=== PATIENT | female | born 1990 | race Caucasian/White ===

== ENCOUNTER → 2017-09-03 13:30 | Outpatient (CLI) | payer OTHER, SELFPAY ==
--- NOTE | 2017-09-03 13:34 | US_ITS ---
US transvaginal HISTORY: Left-sided pelvic pain with vaginal spotting ITS.REASON: severe abdominal pain ORDERING PHYSICIAN: Drake Hanson MD PATIENT AGE: 27 years COMPARISON: 02/06/2012 FINDINGS: The uterus is 6.6 x 3.9 x 5.8 cm with a combined endometrial thickness of 9 mm. The uterus is retroverted. There are several small cystic areas present in the uterus measuring up to 1 x 0.5 cm along the anterior aspect of the lower uterine segment. The left ovary is 2.8 x 1.8 x 2 cm and contains a 1.7 cm cyst. The right ovary is 2.3 x 1 cm and contains a 0.7 cm cyst. No cul-de-sac fluid evident. There is a small amount of pelvic fluid. IMPRESSION: 1. Retroverted uterus with a few cystic areas within the myometrium of the uterus nonspecific 2. Small bilateral ovarian cysts
== END ==
PROVIDERS: Family Provider Family Medicine; PCP Family Medicine; Visit Provider Nurse Practitioner Obstetrics & Gynecology
DX: R10.9 Unspecified abdominal pain (principal)
CPT/HCPCS: 76830

== ENCOUNTER → 2017-10-16 11:48 | Outpatient (CLI) | payer OTHER, SELFPAY ==
[2017-10-16 12:07] LABS: Basophils # 0.1 K/mm3 (0-0.2); Basophils % 0.7 % (0.1-2.0); Eosinophils # 0.8 K/mm3 (0.0-0.4); Eosinophils % 5.9 % (0.1-12.0); Hematocrit 49.1 % (37.0-47.0); Hemoglobin 15.2 g/dL (12.2-16.2); Lymphocytes # 3.2 K/mm3 (0.7-4.5); Lymphocytes % 24.2 K/mm3 (10-50); Mean Corpuscular Hemoglobin 29.4 pg (27.0-31.2); Mean Corpuscular Volume 95.1 fl (81-99); Mean Platelet Volume 7.8 fl (7.4-10.4); Monocytes # 0.4 K/mm3 (0.1-1.0); Monocytes % 2.9 % (1.7-9.3); Neutrophils # 8.8 K/mm3 (1.8-7.8); Neutrophils % 66.3 % (37.0-80.0); Platelet Count 288 K/mm3 (142-424); Red Blood Count 5.16 M/mm3 (4.20-5.40); Red Cell Distribution Width 13.3 % (11.5-17.5); White Blood Count 13.3 K/mm3 (4.8-10.8)
[2017-10-16 13:13] LABS: HCG Qualitative, Serum Negative (Negative)
[2017-10-16 13:21] LABS: Alanine Aminotransferase 21 U/L (12-78); Albumin Level 4.1 gm/dL (3.4-5.0); Albumin/Globulin Ratio 1.3 (1.1-1.8); Alkaline Phosphatase 64 U/L (46-116); Anion Gap 9.7 mEq/L (5-15); Aspartate Amino Transferase 14 U/L (15-37); Bilirubin,Total 0.6 mg/dL (0.2-1.0); Blood Urea Nitrogen 10 mg/dL (7-18); Calcium 9.1 mg/dL (8.5-10.1); Carbon Dioxide 30 mmol/L (21.0-32.0); Chloride 104 mmol/L (98-107); Creatinine,Serum 0.66 mg/dL (0.55-1.02); Estimated Glomerular Filt Rate 108 ml/min (>60); Free Thyroxine Index 2.8 ug/dL (5.93-13.13); GFR (African American) 131 ML/MIN (>60); Globulin 3.2 gm/dl (1.3-3.2); Glucose 89 mg/dL (74-106); Potassium 4.7 mmoL/L (3.5-5.1); Sodium 139 mmol/L (136-145); T4 (Thyroxine) 8.3 ug/dl (4.7-13.3); Total Protein,Serum 7.3 gm/dL (6.4-8.2); Triiodothryronine (T3) Uptake 34 % (31-39)
== END ==
PROVIDERS: Family Provider Family Medicine; PCP Family Medicine; Visit Provider Nurse Practitioner Obstetrics & Gynecology
DX: N93.9 Abnormal uterine and vaginal bleeding, unspecified (principal)
CPT/HCPCS: 36415; 80053; 84436; 84443; 84479; 84703; 85025

== ENCOUNTER → 2019-12-31 16:41 | Outpatient (CLI) | payer OTHER, SELFPAY ==
[2020-01-02 09:02] LABS: Covid-19 Nasal PCR Sendout UK Not Detected
== END ==
PROVIDERS: PCP Internal Medicine Adolescent Medicine; Visit Provider Nurse Practitioner
DX: Z03.818 Encounter for observation for suspected exposure to other biological agents ruled out (principal)
CPT/HCPCS: U0003

== ENCOUNTER 2020-08-12 22:32 | Emergency (ER) | payer OTHER, SELFPAY ==
[2020-08-12 22:42] VITALS: BP 118/42; PULSE 69; RESP 16; TEMP 36.6; O2SAT 100; BMI 19.2
--- NOTE | 2020-08-12 22:50 | XR_ITS ---
PROCEDURE: XR FOOT LT MIN 3V CLINICAL INDICATION: 3rd, 4th and 5th toe pain without injury COMPARISON: CR FTL3 FOOT-LT-3 VIEWS from 08/02/2014 CR FTL3 FOOT-LT-3 VIEWS from 08/06/2014 FINDINGS: No fracture or dislocation. No lytic or blastic change. There is normal mineralization. The joint spaces are well-preserved. No significant degenerative/arthritic changes. No erosive changes evident. Other findings:None. IMPRESSION: No acute findings. Dictated by: Elie Rodriguez MD 08/13/2020 07:22 Elie Rodriguez MD in [place] 08/13/2020 07:22
--- NOTE | 2020-08-12 22:54 | HMH.EDLOEX ---
ED Disposition Clinical Impression: Cellulitis Qualifiers: Site of cellulitis: extremity Site of cellulitis of extremity: toe Laterality: left Qualified Code(s): L03.032 - Cellulitis of left toe Disposition: Home, Self-Care Condition on Discharge: Good Instructions: DI for Cellulitis -- Adult Additional Instructions: use meds and see pcp and podiatry for follow up Prescriptions: Minocycline HCl [Minocycline HCl 100mg Tab*] 100 mg PO BID #20 tab Transmission Status: Pending to [facility] Referrals: Venkata Baker MD [Primary Care Provider] - Patti Sharma DPM [Staff Physician] - - Critical Care Critical Care Time: No Attestation: On 08/12/20, the high probability of a clinically significant, sudden or life threatening deterioration of the following system(s) required my full and direct attention, intervention and personal management. The time I documented below is in addition to time spent performing reported procedures but includes the following listed in this critical care notation. Medical Decision Making - Medical Records Medical records reviewed: Yes: I reviewed the patient's medical records. - Oscar Inquiry Pt receiving controlled substance: No Vital Signs: 08/12/20 22:42 Temperature 97.9 F Temperature Source Oral Pulse Rate [Right] 69 Respiratory Rate 16 Blood Pressure [Right Arm] 118/42 L Blood Pressure Mean [Right Arm] 67 Blood Pressure Source [Right Arm] Automatic Cuff Blood Pressure Position [Right Arm] Supine 02 Sat by Pulse Oximetry 100 Oxygen Delivery Method Room Air - Lab Data Lab results reviewed: Yes: I reviewed the patient's lab results. Lab Results 08/12/20 22:50: WBC 19.3 H, RBC 4.51, Hgb 13.8, Hct 40.2, MCV 89.1, MCH 30.5, MCHC 34.3, RDW 13.3, Plt Count 248, MPV 7.8, Neut % (Auto) 68.6, Lymph % (Auto) 24.0, [place] % (Auto) 2.8, Eos % (Auto) 3.9, Baso % (Auto) 0.7, Neut # (Auto) 13.2 H, Lymph # (Auto) 4.6 H, [place] # (Auto) 0.5, Eos # (Auto) 0.8 H, Baso # (Auto) 0.1, Total Counted 100, Neutrophils % (Manual) 61, Lymphocytes % (Manual) 29, Monocytes % (Manual) 7, Eosinophils % (Manual) 3, Platelet Estimate Normal, RBC Morphology Normal 08/12/20 22:50: Sodium 136, Potassium 3.7, Chloride 106, Carbon Dioxide 25, Anion Gap 8.7, BUN 13, Creatinine 0.70, Estimated Creat Clear 89, Estimated GFR 99, Est GFR ( Amer) 120, Glucose 96, Uric Acid 4.5, Calcium 10.0, Total Bilirubin 0.4, AST 20, ALT 11 L, Alkaline Phosphatase 51, C-Reactive Protein 2.0, Total Protein 7.4, Albumin 4.6, Globulin 2.8, Albumin/Globulin Ratio 1.6 Result diagrams: 08/12/20 22:50 08/12/20 22:50 Orders (Tests/Meds): ED MEDICATIONS Generic Name Dose Route Start Last Admin Trade Name Freq PRN Reason Stop Dose Admin Sodium Chloride 1,000 mls @ 999 mls/hr 08/12/20 23:00 08/12/20 22:56 Sod Chlor 0.9% 1000ml Bag IV 08/13/20 00:00 999 mls/hr .Q1H1M ELMO Administration Ceftriaxone Sodium 1 gm/ 50 mls @ 100 mls/hr 08/12/20 23:30 Sodium Chloride IV 08/26/20 23:29 Q24H ELMO Protocol Discontinued Medications Generic Name Dose Route Start Last Admin Trade Name Freq PRN Reason Stop Dose Admin Ketorolac Tromethamine 30 mg 08/12/20 22:50 08/12/20 22:56 Ketorolac 30mg/Ml Vial IV 08/12/20 22:51 30 mg ONCE ONE Administration Methylprednisolone Sodium Succinate 125 mg 08/12/20 22:50 08/12/20 22:56 Methylprednisolone Sod Succ 125mg Vial IV 08/12/20 22:51 125 mg ONCE ONE Administration ORDERS Category Date Time Status XR foot LT min 3V Stat Exams 08/12/20 22:50 Taken C-Reactive Protein Stat Lab 08/12/20 22:50 Results Complete Blood Count Auto Diff Stat Lab 08/12/20 22:50 Results Comprehensive Metabolic Panel Stat Lab 08/12/20 22:50 Results Erythrocyte Sedimentation Rate Stat Lab 08/12/20 22:50 Results Procalcitonin Stat Lab 08/12/20 22:50 Results Uric Acid Stat Lab 08/12/20 22:50 Results - Radiology Data #1 Image(s): Foot/Toes
[2020-08-12 23:00] LABS: Basophils # 0.1 K/mm3 (0-0.2); Basophils % 0.7 % (0.1-2.0); Eosinophils # 0.8 K/mm3 (0.0-0.4); Eosinophils % 3.9 % (0.1-12.0); Hematocrit 40.2 % (37.0-47.0); Hemoglobin 13.8 g/dL (12.2-16.2); Lymphocytes # 4.6 K/mm3 (0.7-4.5); Mean Corpuscular HGB Conc 34.3 g/dL (31.8-35.4); Mean Corpuscular Hemoglobin 30.5 pg (27.0-31.2); Mean Corpuscular Volume 89.1 fl (81-99); Mean Platelet Volume 7.8 fl (7.4-10.4); Monocytes # 0.5 K/mm3 (0.1-1.0); Monocytes % 2.8 % (1.7-9.3); Neutrophils # 13.2 K/mm3 (1.8-7.8); Neutrophils % 68.6 % (37.0-80.0); Platelet Count 248 K/mm3 (142-424); Red Blood Count 4.51 M/mm3 (4.20-5.40); Red Cell Distribution Width 13.3 % (11.5-17.5); White Blood Count 19.3 K/mm3 (4.8-10.8)
[2020-08-12 23:02] LABS: MANUAL DIFFERENTIAL MANUAL DIFFERENTIAL (MANUAL DIFF)
[2020-08-12 23:08] LABS: Alanine Aminotransferase 11 U/L (12-78); Albumin Level 4.6 g/dl (3.5-5.0); Albumin/Globulin Ratio 1.6 (1.1-1.8); Alkaline Phosphatase 51 U/L (38-126); Anion Gap 8.7 mEq/L (5-15); Aspartate Amino Transferase 20 U/L (14-36); Bilirubin,Total 0.4 mg/dl (0.2-1.3); Blood Urea Nitrogen 13 mg/dl (7-17); Carbon Dioxide 25 mmol/L (22.0-30.0); Chloride 106 mmol/L (98-107); Creatinine Clearance Estimated 89 mL/min (50-200); Estimated Glomerular Filt Rate 99 ml/min (>60); GFR (African American) 120 ML/MIN (>60); Globulin 2.8 g/dL (1.3-3.2); Glucose 96 mg/dl (74-100); Potassium 3.7 mmoL/L (3.5-5.1); Sodium 136 mmol/L (136-145); Total Protein,Serum 7.4 g/dl (6.3-8.2); Uric Acid 4.5 mg/dl (2.5-6.2)
[2020-08-12 23:19] LABS: Eosinophils % 3 % (0-3); Lymphocytes % 29 % (10-50); Monocytes % 7 % (2-9); Neutrophils % 61 % (42-76); Platelet Estimate Normal; RBC Morphology Normal; Total Cells Counted 100
[2020-08-12 23:26] LABS: Erythrocyte Sedimentation Rate 14 mm/hr (0-20)
[2020-08-12 23:27] LABS: Procalcitonin 0.031 ng/mL (0.0-2.0)
[2020-08-13 00:03] VITALS: BP 114/67; PULSE 66; RESP 16; TEMP 36.6; O2SAT 100
== END 2020-08-13 00:07 | disposition home or self-care (01) ==
PROVIDERS: Emergency Provider Emergency Medicine; PCP Internal Medicine Adolescent Medicine
DX: L03.032 Cellulitis of left toe (principal); F17.210 Nicotine dependence, cigarettes, uncomplicated
CPT/HCPCS: 73630; 80053; 84145; 84550; 85007; 85025; 85651; 86140; 96365; 96367; 96375; 99282

== ENCOUNTER → 2020-08-15 17:07 | Outpatient (CLI) | payer OTHER, SELFPAY | PROVIDERS: Visit Provider Podiatrist | DX: L03.90 Cellulitis, unspecified (principal); L03.032 Cellulitis of left toe | CPT/HCPCS: 87070; 87077; 87186; 87205 ==

== ENCOUNTER → 2020-08-21 14:52 | Outpatient (CLI) | payer OTHER, SELFPAY ==
[2020-08-21 14:55] LABS: Microscopic, Urine URINE MICROSCOPIC (MICROSCOPIC)
[2020-08-21 15:13] LABS: Basophils # 0.1 K/mm3 (0-0.2); Basophils % 0.9 % (0.1-2.0); Eosinophils # 0.6 K/mm3 (0.0-0.4); Eosinophils % 4.7 % (0.1-12.0); Hematocrit 45.6 % (37.0-47.0); Hemoglobin 15.1 g/dL (12.2-16.2); Lymphocytes # 3.6 K/mm3 (0.7-4.5); Lymphocytes % 29.4 % (10-50); Mean Corpuscular Hemoglobin 30.7 pg (27.0-31.2); Mean Corpuscular Volume 92.9 fl (81-99); Mean Platelet Volume 7.5 fl (7.4-10.4); Monocytes # 0.4 K/mm3 (0.1-1.0); Monocytes % 2.9 % (1.7-9.3); Neutrophils # 7.6 K/mm3 (1.8-7.8); Neutrophils % 62.1 % (37.0-80.0); Platelet Count 297 K/mm3 (142-424); Red Blood Count 4.91 M/mm3 (4.20-5.40); Red Cell Distribution Width 13.1 % (11.5-17.5); White Blood Count 12.2 K/mm3 (4.8-10.8)
[2020-08-21 15:24] LABS: Appearance,Urine CLEAR (Clear); Bilirubin,Urine Negative (Negative); Blood, Urine Negative (Negative); Color,Urine YELLOW (Yellow); Glucose,Urine (UA) Negative (Negative); Ketones,Urine Negative (Negative); Leukocyte Esterase,Urine Negative (Negative); Nitrate,Urine Negative (Negative); PH,Urine 5.5 (5.0-8.5); Protein,Urine Negative (Negative); Specific Gravity, Urine 1.025 (1.005-1.030); Urobilinogen,Urine 0.2 EU/dl (0.2)
[2020-08-21 15:34] LABS: Chloride 103 mmol/L (98-107)
[2020-08-21 15:35] LABS: Potassium 4.6 mmoL/L (3.5-5.1); Sodium 138 mmol/L (136-145)
[2020-08-21 15:37] LABS: Alanine Aminotransferase 11 U/L (12-78); Amylase 97 U/L (30-110); Anion Gap 12.6 mEq/L (5-15); Aspartate Amino Transferase 21 U/L (14-36); Blood Urea Nitrogen 11 mg/dl (7-17); Carbon Dioxide 27 mmol/L (22.0-30.0); Estimated Glomerular Filt Rate 99 ml/min (>60); GFR (African American) 120 ML/MIN (>60)
[2020-08-21 15:38] LABS: Albumin Level 5.1 g/dl (3.5-5.0); Albumin/Globulin Ratio 1.8 (1.1-1.8); Alkaline Phosphatase 62 U/L (38-126); Bilirubin,Total 1.2 mg/dl (0.2-1.3); Calcium 9.9 mg/dl (8.4-10.2); Globulin 2.8 g/dL (1.3-3.2); Glucose 105 mg/dl (74-100); Lipase 139 U/L (23-300); Total Protein,Serum 7.9 g/dl (6.3-8.2)
[2020-08-21 16:01] LABS: Bacteria,Urine 1+ /lpf; Squamous Epithelial Cell,Urine TNTC #/hpf (0-5)
[2020-08-21 16:31] LABS: HCG Qualitative, Serum Negative (Negative)
== END ==
PROVIDERS: Visit Provider Internal Medicine Adolescent Medicine
DX: R10.31 Right lower quadrant pain (principal); R10.32 Left lower quadrant pain; D72.829 Elevated white blood cell count, unspecified
CPT/HCPCS: 36415; 80053; 81001; 82150; 83690; 84703; 85025

== ENCOUNTER → 2020-08-22 12:27 | Outpatient (CLI) | payer OTHER, SELFPAY ==
--- NOTE | 2020-08-22 15:10 | CT_ITS ---
PROCEDURE: CT ABDOMEN PELVIS W CON CLINICAL INDICATION: RLQ PAIN,LLQ PAIN,LEUKOCYTOSIS COMPARISON: CT ABDPELW/O CT ABD PELVIS W/O CONTRAST from 10/28/2012 US TRANVAG US transvaginal from 09/03/2017 TECHNIQUE: IV Contrast: 75ML Isovue 370 Oral Contrast None Axial images obtained with sagittal and coronal reformats. All CT scans at the facility use one or more dose reduction, viz: automated exposure control, ma/kV adjustment per patient size (including targeted exams where dose is matched to indication, i.e. head), or iterative reconstruction technique. FINDINGS: LOWER THORAX: No acute finding ABDOMEN & PELVIS: A 7 mm hypodensity is present in the hepatic dome nonspecific may represent a hepatic cyst. The liver has an otherwise unremarkable appearance. The gallbladder, spleen, adrenal glands, pancreas, and kidneys have an unremarkable appearance. No renal or ureteral calculi. No evidence of appendicitis. No intestinal obstruction or free air. The uterus is bulky with heterogeneous density and canted toward the right. Heterogeneous density noted toward the fundus of the uterus. Consider pelvic ultrasound for more thorough evaluation. Uterine fibroids are considered. Follow-up is suggested. There is a prominent left periuterine vein. No acute bony findings. Mild lumbar scoliosis convex right. Probable small bone island of the right femoral head IMPRESSION: 1. No acute abdominal or pelvic findings. No evidence of appendicitis. 2. Bulky heterogeneous uterus which may be due to the fibroid involvement. Nonemergent pelvic ultrasound suggested Dictated by: Elie Rodriguez MD 08/22/2020 16:26 Eile Rodriguez MD in [place] 08/22/2020 16:26
== END ==
PROVIDERS: PCP Internal Medicine Adolescent Medicine; Visit Provider Internal Medicine Adolescent Medicine
DX: R10.31 Right lower quadrant pain (principal); R10.32 Left lower quadrant pain; D72.829 Elevated white blood cell count, unspecified
CPT/HCPCS: 74177; Q9967

== ENCOUNTER → 2020-08-29 14:12 | Outpatient (CLI) | payer OTHER, SELFPAY ==
--- NOTE | 2020-08-29 14:17 | US_ITS ---
PROCEDURE: US TRANSVAGINAL CLINICAL INDICATION: ENLARGED UTERUS COMPARISON: US TRANVAG US transvaginal from 09/03/[address] ABDOMEN PELVIS W CON from 08/22/2020 FINDINGS: UTERUS: 8cm x 5cmx 4cm. Small amount fluid is present in the endometrial canal inferiorly. In the fundus of the uterus there are several hypoechoic areas measuring up to 2 cm. These are central as well as on the right and left. These do correspond to the abnormality noted on the CT scan. At least 1 of the cystic areas contains and a rounded area of I so echogenicity. Another was cystic areas has an irregular margin. There is some distortion with some possible scarring in the mid aspect of these cystic areas. LEFT OVARY: [id number] with a volume of 2.2ml. RIGHT OVARY: [id number] with a volume of 9ml. Septated right ovarian cyst measuring 3 x 2 cm. No cul-de-sac fluid. IMPRESSION: Abnormal appearance of the uterus which has developed since 09/03/2017 with several, approximately 4 complex cystic areas as described above with possible scarring in the center of these regions with some irregular increased echogenicity. This may represent post ablation changes with hematometra and scarring. Infection is an additional consideration. Neoplasm would also be included in the differential diagnosis.. Gynecological consult may be in order. MRI of the pelvis without and with contrast enhancement may provide further evaluation. 3 x 2 cm septated right ovarian cyst Dictated by: Elie Rodriguez MD 08/30/2020 10:44 Elie Rodriguez MD in [place] 08/30/2020 10:44
== END ==
PROVIDERS: PCP Internal Medicine Adolescent Medicine; Visit Provider Internal Medicine Adolescent Medicine
DX: N85.2 Hypertrophy of uterus (principal)
CPT/HCPCS: 76830

== ENCOUNTER → 2020-09-15 12:06 | Outpatient (CLI) | payer OTHER, SELFPAY ==
[2020-09-15 12:53] LABS: Basophils # 0.1 K/mm3 (0-0.2); Basophils % 0.7 % (0.1-2.0); Eosinophils # 0.6 K/mm3 (0.0-0.4); Eosinophils % 4.6 % (0.1-12.0); Hematocrit 43.5 % (37.0-47.0); Hemoglobin 14.5 g/dL (12.2-16.2); Lymphocytes # 2.7 K/mm3 (0.7-4.5); Lymphocytes % 22.6 % (10-50); Mean Corpuscular HGB Conc 33.4 g/dL (31.8-35.4); Mean Corpuscular Hemoglobin 30.5 pg (27.0-31.2); Mean Corpuscular Volume 91.1 fl (81-99); Mean Platelet Volume 7.7 fl (7.4-10.4); Monocytes # 0.5 K/mm3 (0.1-1.0); Monocytes % 3.8 % (1.7-9.3); Neutrophils # 8.2 K/mm3 (1.8-7.8); Neutrophils % 68.3 % (37.0-80.0); Platelet Count 266 K/mm3 (142-424); Red Blood Count 4.78 M/mm3 (4.20-5.40); White Blood Count 11.9 K/mm3 (4.8-10.8)
[2020-09-15 13:15] LABS: Chloride 104 mmol/L (98-107); Sodium 141 mmol/L (136-145)
[2020-09-15 13:16] LABS: Potassium 4.5 mmoL/L (3.5-5.1)
[2020-09-15 13:18] LABS: HCG Qualitative, Serum Negative (Negative)
[2020-09-15 13:19] LABS: Anion Gap 13.5 mEq/L (5-15); Blood Urea Nitrogen 7 mg/dl (7-17); Calcium 9.8 mg/dl (8.4-10.2); Carbon Dioxide 28 mmol/L (22.0-30.0); Estimated Glomerular Filt Rate 99 ml/min (>60); GFR (African American) 120 ML/MIN (>60); Glucose 75 mg/dl (74-100)
== END ==
PROVIDERS: Visit Provider Nurse Practitioner Obstetrics & Gynecology
DX: Z01.812 Encounter for preprocedural laboratory examination (principal); Z11.52 Encounter for screening for COVID-19; R10.2 Pelvic and perineal pain; N85.7 Hematometra
CPT/HCPCS: 36415; 80048; 84703; 85025; U0003

== ENCOUNTER 2020-09-18 06:12 | Observation (INO) | payer OTHER, SELFPAY ==
[2020-09-14 10:55] VITALS: BMI 18.1
[2020-09-18] VITALS (26 sets, daily range): BP systolic 89–149; BP diastolic 56–73; PULSE 54–91; RESP 13–20; TEMP 36.2–38; O2SAT 96–100
--- NOTE | 2020-09-18 06:51 | HMH.ANESCL ---
[facility] Anesthesia Checklist - Structural Data Admitted From: Home Planned Operative Procedure/s: [facility] Consent for Planned Operative Procedure(s) Verified: Yes - Additional verifications Anesthesia Reactions: No Hx Blood Transfusions: Yes Blood Transfusion Reaction: No - Airway Assessment C-Spine Mobility Assessed: Yes TMJ Mobility Assessed: Yes Dentition: Poor Dentition - Neurological Assessment Level of Consciousness: Awake, Alert, Appropriate - Anesthesia Plan Anesthesia Risk discussed: Yes Anesthesia Plan: Verified ASA Class: II Anesthesia Type: General [facility] History I have reviewed the patient's past medical history: Yes Medical History: Denies:: Anxiety, Cancer, Depression, Diabetes Mellitus Type 1, Diabetes Mellitus Type 2, Internal Pacemaker, Migraine, MRSA, Seizures *Have you ever received a pneumonia vaccine?: No *Have you received a flu vaccine this season?: No Other Medical History: Denies: Blood Transfusion Reaction Anesthesia experience/problems:: none Laterality Cases: Left: Other Other Surgeries: No: Pacemaker Amputation: No Fractures: No - *Social History Last grade of school completed: High school graduate Smoking Status: Current every day smoker Tobacco Type: cigarettes # Packs/Day (cigarettes): 1 Alcohol Intake: never Substance Use Type: denies use *Occupational Status:: employed Housing: apartment Household Members: spouse *Travel in the last 8 weeks: None - Psychiatric History Pschychiatric History:: Denies:: Anxiety, Depression Family Hx:: Coronary Artery Disease, Heart Attack, Hyperlipidemia, Hypertension
--- NOTE | 2020-09-18 09:33 | HMH.OPNOTE ---
Date of procedure: 09/18/20 Pre-op Diagnosis:: Pelvic pain, hematometra Post-op Diagnosis:: Pelvic pain, hematometra Procedure performed:: Laparoscopically assisted vaginal hysterectomy Surgeon:: Drake Hanson MD [employer] Tender(s):: Dr. Broderick BUS DRIVER:: Other (Jeromy Perkins) Anesthesia: GETA Estimated blood loss (mL): 150 Clinical Note:: She is a 30-year-old 3 para 3 lady who complains of severe lower abdominal pain. An ultrasound showed that she had cystic lesions within the uterus. She has had a previous endometrial ablation I suspect she still had some areas of endometrium. As result of this she was offered laparoscopically assisted vaginal hysterectomy. Operative findings:: She has had a previous tubal ligation. The tubes were absent. The ovaries appeared normal. The uterus was somewhat bulky and normal in appearance. The deep pelvis was normal. The appendix was visualized and was seen to be adherent to the peritoneum overlying the right iliac artery. The upper abdomen appeared normal. Operative note:: She was taken to the operating room where general anesthesia was found be adequate. She was prepped and draped in normal sterile fashion in the semilithotomy position. A weighted speculum was placed in the vagina and the anterior lip of the cervix was grasped with a tenaculum. An acorn uterine manipulator was then placed within the cervical os. I then changed gloves. I injected 10 cc of 0.5% ropivacaine around the umbilicus and made a small incision within the umbilicus. I inserted a Veress needle into the abdominal cavity. The abdominal cavity was then insufflated with carbon dioxide gas to a pressure of 20 mmHg. I then inserted an 11 mm trocar under direct vision. I injected through and through the pubic hairline, made a small incision here and inserted a 5 mm trocar under direct vision. I identified the inferior epigastric arteries on the left side, went lateral to these and injected through and through. I then made a small incision and inserted an 11 mm trocar under direct vision. A similar 11 mm trocar was placed on the right side. The left round ligament was then grasped and cut through with harmonic scalpel. This was followed by opening up the peritoneum anteriorly to the midline. I then grasped the tube on the left side and cut through this. This is followed by cutting through the left utero-ovarian ligament. I used Harmonic scalpel on the coagulation mode. I then took down the posterior aspect of the broad ligament to the level of the uterosacral ligament. I then skeletonized the uterine arteries on the left side and placed hemoclips on these. Using the harmonic scalpel on coagulation mode adjacent to the cervix I then took down these uterine arteries. I then further freed up the bladder anteriorly and laterally on the left side. I then turned my attention to the right side where I grasped the right round ligament. The right tube was adherent to the right pelvic sidewall and using harmonic scalpel I was able to free this up. I then cut through the right round ligament. I then took down the anterior peritoneum to the midline joining up with the other side. I further dissected the bladder off. The posterior aspect of the right broad ligament was then taken down with harmonic scalpel. I skeletonized the uterine arteries on the right side. I applied hemoclips to the uterine arteries and staying adjacent to the cervix on the right side I took down the uterine arteries with harmonic scalpel on coagulation mode. I further freed up the bladder. We then assured hemostasis. We then turned our attention to the vaginal portion of the procedure. The patient was placed in the lithotomy position and a weighted speculum was placed in the vagina. The anterior and posterior lip of the cervix were grasped with Ankit huiacbrad. I then injected 20 cc of 1% Xylocaine with epinephrine circumferentially about the cervix.
--- NOTE | 2020-09-18 09:41 | HMH.HP ---
*Admission Date: 09/18/20 *Chief complaint: Hematomata, pelvic pain *History of present illness: She is a 30-year-old 3 para 3 lady who is had a previous endometrial ablation. She began having some abdominal pain recently and was found to have a number of cystic areas within the uterine cavity. I suspect that she continued to have some endometrial tissue and this continued to bleed internally within the uterine cavity. The distention of the uterine cavity was causing pain and as result of that we offered her laparoscopic-assisted vaginal hysterectomy. She is had a previous bilateral salpingectomy. [facility] History I have reviewed the patient's past medical history: Yes Medical History: Denies:: Anxiety, Cancer, Depression, Diabetes Mellitus Type 1, Diabetes Mellitus Type 2, Internal Pacemaker, Migraine, MRSA, Seizures *Have you ever received a pneumonia vaccine?: No *Have you received a flu vaccine this season?: No Other Medical History: Denies: Blood Transfusion Reaction Anesthesia experience/problems:: none Laterality Cases: Left: Other Other Surgeries: No: Pacemaker Amputation: No Fractures: No - *Social History Last grade of school completed: High school graduate Smoking Status: Current every day smoker Tobacco Type: cigarettes # Packs/Day (cigarettes): 1 Alcohol Intake: never Substance Use Type: denies use *Occupational Status:: employed Housing: apartment Household Members: spouse *Travel in the last 8 weeks: None - Psychiatric History Pschychiatric History:: Denies:: Anxiety, Depression Family Hx:: Coronary Artery Disease, Heart Attack, Hyperlipidemia, Hypertension Review of Systems - Review of Systems Review of systems:: pertinent systems reviewed and negative unless documented below Meds Home Medications Medication Instructions Recorded Confirmed Type No Known Home Medications 09/11/20 09/14/20 History Allergies Allergy/AdvReac Type Severity Reaction Status Date / Time No Known Allergies Allergy Verified 09/11/20 09:44 Exam Vital signs and Labs for Last 24 Hours: Temp Pulse Resp BP Pulse Ox 97.2 F L 57 L 18 140/68 100 09/18/20 06:23 09/18/20 06:23 09/18/20 06:23 09/18/20 06:23 09/18/20 06:23 - Constitutional no acute distress - *Routine HEENT Exam Head: Present: normocephalic Eye: Present: EOMI, PERRL ENT: Present: mucous membranes moist - *Routine Neck Exam Present: supple, full ROM - *Routine Respiratory Exam Absent: accessory muscle use (good air entry bilaterally), wheezes, crackles - *Routine Cardiovascular Exam Present: RRR. Absent: murmur - *Routine Abdominal Exam Present: soft, normoactive bowel sounds. Absent: tenderness, rebound, guarding, mass - *Routine Rectal Exam Rectal:: deferred - *Routine Genitalia Exam Genitalia:: deferred - *Routine Extremities Exam Present: full ROM. Absent: cyanosis, edema, calf tenderness - *Routine Skin Exam Present: intact (good color) - *Routine Neurological Exam Present: alert, oriented X3 - Routine Psychiatric Exam Present: normal affect - Detailed Rectal Exam Patient deferred: visual exam, digital exam - Detailed Exam Patient deferred: external exam, groin exam, perineal exam Assessment and Plan (1) Hematometra Status: Acute Category: Medical Code(s): N85.7 - Hematometra (2) Pelvic pain Status: Acute Category: Medical Code(s): R10.2 - Pelvic and perineal pain (3) Dysmenorrhea Status: Chronic Category: Medical Code(s): N94.6 - Dysmenorrhea, unspecified (4) Dyspareunia Status: Chronic Category: Medical - Assessment and plan all Dx Assessment and Plan for all problems:: She is admitted for laparoscopic-assisted vaginal hysterectomy.
--- NOTE | 2020-09-18 10:35 | PC.NURSE ---
1000-pt eating ice chips w/out difficulty 1010-detailed report called to [facility] 1013-pt transported to OB room 279 via hospital bed w/tommy rails up per ALISA Hatch and ALISA Guerrier and left in care of ALISA Vargas with bed locked in lowest position, vss, pt stable.
--- NOTE | 2020-09-18 10:55 | HMH.PHAVTE ---
[facility] Pharmacy VTE Monitoring - Patient Demographics Admission date: 09/18/20 Report Date: 09/18/20 Time: 10:55 Allergies/Adverse Reactions: Patient Allergies No Known Allergies Allergy (Verified 09/11/20 09:44) Height: 1.57 m Weight: 44.962 kg Patient Problems: Current Active Problems Hematometra (Acute) Pelvic pain (Acute) Dyspareunia (Chronic) Dysmenorrhea (Chronic) - Prophylaxis VTE Prophylaxis Ordered?: Yes Types of VTE Prophylaxis: IPCS Thigh High Location of Applied Device: Bilateral Lower Extremeties
--- NOTE | 2020-09-18 11:17 | PC.NURSE ---
Dr. Hanson at bs to see pt (rounding).
--- NOTE | 2020-09-18 15:03 | PC.NURSE ---
Pt given Incentive Spirometer, instructed on usage of and reasons why. Verbalized understanding. Stated that she was familiar with them bc of using them in the past.
--- NOTE | 2020-09-18 15:06 | PC.NURSE ---
Pt demonstrating usage of incentive spirometer. Sitting up in bed using it while watching tv.
[2020-09-18 16:05] LABS: Hematocrit 37.8 % (37.0-47.0); Hemoglobin 12.8 g/dL (12.2-16.2)
[2020-09-18 16:08] LABS: Microscopic,Cath URINE MICROSCOPIC (MICROSCOPIC)
[2020-09-18 16:11] LABS: Appearance,Urine/Cath CLEAR (Clear); Bilirubin,Cath Negative (Negative); Blood, Urine/Cath TRACE-L (Negative); Color,Urine/Cath YELLOW (Yellow); Glucose,Urine/Cath (UA) Negative (Negative); Ketones,Urine/Cath Negative (Negative); Leukocyte Esterase,Cath Negative (Negative); Nitrate,Cath Negative (Negative); PH,Urine/Cath 6.5 (5.0-8.5); Protein,Urine/Cath Negative (Negative); Specific Gravity, Urine/Cath <= 1.005 (1.005-1.030); Urobilinogen,Cath 0.2 EU/dl (0.2)
--- NOTE | 2020-09-18 17:14 | P.PN_ITS ---
[facility] Anesthesia Record Part I Intake, IV Amount: 1,600 Estimated blood loss (mL): 150 Urine output (mL): 1,200 Blood Pressure: 149/60 SaO2: 98 Pulse Rate: 65 Respiratory Rate: 13 Temperature: 97.4 F Patient is:: Awake, Drowsy Stable to PACU at:: 09:48
--- NOTE | 2020-09-18 19:24 | PC.NURSE ---
Report given to ALISA Cid.
--- NOTE | 2020-09-18 23:00 | PC.NURSE ---
AFTER GIVING PT OXYCODONE 10MG PT STILL HAVING PAIN PT DENIES PASSING ANY GAS,WILL TRY SOME MYLICON.TAKING PT [facility] CATH OUT ORDERED PER SHEYLA,THIS MAY HELP ALSO 550 ML CLEAR YELLOW URINE EMPTIED FROM [facility]
--- NOTE | 2020-09-18 23:45 | PC.NURSE ---
MYLICON DID NOT HELP,MORPHINE 2MG IVP GIVEN.ORANGE JUICE ALSO GIVEN,EXPLAINED TO PT THAT TO MUCH CARBONATION FROM POP DOES NOT WITH GAS,PT HAD A POP FROM [employer] SHE WAS DRINKING.
[2020-09-19 04:00] VITALS: BP 107/53; PULSE 54; RESP 16; TEMP 36.6; O2SAT 99
--- NOTE | 2020-09-19 04:26 | PC.NURSE ---
PT HAS BEEN MEDICATED SEVERAL TIME WITH PAIN MEDICINE.PT LUNGS CLEAR,RESP EVEN AND UNLABORED,PT STILL NOT PASSING ANY FLATUS EVEN AFTER HAVING MYLICON ONCE LAST NIGHT,POSITIVE BOWEL SOUNDS X 4,NO NEW DRAINAGE TO DRESSING LAP SITES,PT VOIDING WITHOUT DIFF.V/S STABLE,WILL CONTINUE TO MONITOR
[2020-09-19 06:37] LABS: Basophils % 0.2 % (0.1-2.0); Eosinophils # 0.1 K/mm3 (0.0-0.4); Eosinophils % 0.5 % (0.1-12.0); Hematocrit 34.4 % (37.0-47.0); Hemoglobin 11.7 g/dL (12.2-16.2); Lymphocytes # 3.3 K/mm3 (0.7-4.5); Lymphocytes % 17.9 % (10-50); Mean Corpuscular Hemoglobin 30.7 pg (27.0-31.2); Mean Corpuscular Volume 90.4 fl (81-99); Mean Platelet Volume 8.1 fl (7.4-10.4); Monocytes # 0.6 K/mm3 (0.1-1.0); Monocytes % 3.4 % (1.7-9.3); Neutrophils # 14.3 K/mm3 (1.8-7.8); Platelet Count 250 K/mm3 (142-424); Red Blood Count 3.81 M/mm3 (4.20-5.40); Red Cell Distribution Width 13.4 % (11.5-17.5); White Blood Count 18.3 K/mm3 (4.8-10.8)
[2020-09-19 06:41] LABS: Chloride 105 mmol/L (98-107); Sodium 137 mmol/L (136-145)
[2020-09-19 06:42] LABS: Potassium 4.3 mmoL/L (3.5-5.1)
[2020-09-19 06:44] LABS: Anion Gap 9.3 mEq/L (5-15); Blood Urea Nitrogen 7 mg/dl (7-17); Carbon Dioxide 27 mmol/L (22.0-30.0); Creatinine Clearance Estimated 98 mL/min (50-200); Estimated Glomerular Filt Rate 118 ml/min (>60); GFR (African American) 143 ML/MIN (>60); MANUAL DIFFERENTIAL MANUAL DIFFERENTIAL (MANUAL DIFF)
[2020-09-19 06:45] LABS: Calcium 8.8 mg/dl (8.4-10.2); Glucose 103 mg/dl (74-100)
--- NOTE | 2020-09-19 07:21 | P.PN_ITS ---
[facility] Anesthesia Record Part II Discharge Time: 10:13 Destination: Surgical Day Care (OP Surgery) PACU nurse assessment reviewed?: Yes Patient Condition:: Good Anesthesia Complications:: None Swallowing reflex intact?: Yes Cyanosis?: No Blood Pressure: 117/67 Pulse Rate: 76 Temperature: 97.4 F Mental Status: Alert & Oriented Pain level:: 5 Nausea and/or vomitting:: None Intake, IV Amount: 1,600
[2020-09-19 07:22] VITALS: BP 117/67; PULSE 76; TEMP 36.3
--- NOTE | 2020-09-19 07:30 | PC.NURSE ---
REPORT GIVEN TO RAYRN
[2020-09-19 09:00] VITALS: BP 105/58; PULSE 56; RESP 18; TEMP 36.6
[2020-09-19 09:15] LABS: Lymphocytes % 17 % (10-50); Monocytes % 4 % (2-9); Neutrophils % 79 % (42-76); Platelet Estimate Normal; RBC Morphology Normal; Total Cells Counted 100
--- NOTE | 2020-09-19 09:18 | HMH.DCSUM ---
General - General Admission date:: 09/18/20 Discharge date: 09/19/20 HPI HPI: She is a 30-year-old 3 para 3 lady who is had a previous endometrial ablation. She began having some abdominal pain recently and was found to have a number of cystic areas within the uterine cavity. I suspect that she continued to have some endometrial tissue and this continued to bleed internally within the uterine cavity. The distention of the uterine cavity was causing pain and as result of that we offered her laparoscopic-assisted vaginal hysterectomy. She is had a previous bilateral salpingectomy. Hospital Course Hospital Course: On September 18, 2020 she underwent a laparoscopically assisted vaginal hysterectomy. She has done well postoperatively and has remained afebrile throughout her hospitalization. She denies any chest pain, shortness of breath or calf tenderness. Her incisions are clean and dry. Blood counts are normal and her pain is reasonably well controlled. We will plan to send her home today. She was given the usual instructions with respect to limiting her activity, driving and sexual activity. Her condition on discharge is stable and improved. Objective Vital signs: Temp Pulse Resp BP Pulse Ox 97.4 F L 76 16 117/67 99 09/19/20 07:22 09/19/20 07:22 09/19/20 04:00 09/19/20 07:22 09/19/20 04:00 no acute distress - *Routine HEENT Exam Head: Present: normocephalic Eye: Present: EOMI, PERRL ENT: Present: mucous membranes moist - *Routine Neck Exam Present: supple - *Routine Respiratory Exam Present: CTA bilaterally - *Routine Cardiovascular Exam Present: RRR - *Routine Abdominal Exam Present: soft, normoactive bowel sounds. Absent: tenderness Comments: Incisions are clean and dry - *Routine Skin Exam Present: warm. Absent: rash Results Labs on day of discharge: Labs from last 24 hours 09/19/20 09/19/20 09/18/20 06:14 06:14 15:55 WBC 18.3 H RBC 3.81 L Hgb 11.7 L 12.8 Hct 34.4 L 37.8 MCV 90.4 MCH 30.7 MCHC 34.0 RDW 13.4 Plt Count 250 MPV 8.1 Neut % (Auto) 78.0 Lymph % (Auto) 17.9 [place] % (Auto) 3.4 Eos % (Auto) 0.5 Baso % (Auto) 0.2 Neut # (Auto) 14.3 H Lymph # (Auto) 3.3 [place] # (Auto) 0.6 Eos # (Auto) 0.1 Baso # (Auto) 0.0 Total Counted 100 Neutrophils % (Manual) 79 H Lymphocytes % (Manual) 17 Monocytes % (Manual) 4 Platelet Estimate Normal RBC Morphology Normal Sodium 137 Potassium 4.3 Chloride 105 Carbon Dioxide 27 Anion Gap 9.3 BUN 7 Creatinine 0.60 Estimated Creat Clear 98 Estimated GFR 118 Est GFR ( Amer) 143 Glucose 103 H Calcium 8.8 Urine Color Urine Appearance Urine pH Ur Specific [place] Urine Protein Urine Glucose (UA) Urine Ketones Urine Blood Urine Nitrate Urine Bilirubin Urine Urobilinogen Ur Leukocyte Esterase Urine RBC Urine WBC Ur Squamous Epith Cells Urine Bacteria 09/18/20 09:50 WBC RBC Hgb Hct MCV MCH MCHC RDW Plt Count MPV Neut % (Auto) Lymph % (Auto) [place] % (Auto) Eos % (Auto) Baso % (Auto) Neut # (Auto) Lymph # (Auto) [place] # (Auto) Eos # (Auto) Baso # (Auto) Total Counted Neutrophils % (Manual) Lymphocytes % (Manual) Monocytes % (Manual) Platelet Estimate RBC Morphology Sodium Potassium Chloride Carbon Dioxide Anion Gap BUN Creatinine Estimated Creat Clear Estimated GFR Est GFR ( Amer) Glucose Calcium Urine Color Yellow Urine Appearance Clear Urine pH 6.5 Ur Specific [place] <= 1.005 Urine Protein Negative Urine Glucose (UA) Negative Urine Ketones Negative Urine Blood Trace-l Urine Nitrate Negative Urine Bilirubin Negative Urine Urobilinogen 0.2 Ur Leukocyte Esterase Negative Urine RBC None Urine WBC None Ur Squamous Epith Cells None Urine Bacter
--- NOTE | 2020-09-19 11:03 | PC.NURSE ---
IV discontinued, catheter intact. 2x2 and gauze applied to site. Pt tolerated well.
== END 2020-09-19 12:15 | disposition home or self-care (01) ==
LOC: OB 06:13
PROVIDERS: Admitting Provider Nurse Practitioner Obstetrics & Gynecology; PCP Internal Medicine Adolescent Medicine; Visit Provider Nurse Practitioner Obstetrics & Gynecology
PROC: 0UT9FZZ Resection of Uterus, Via Natural or Artificial Opening With Percutaneous Endoscopic Assistance (ICD-10-PCS; CPT 58550; principal; 2020-09-18 07:30)
DX: N85.7 Hematometra (principal); N94.6 Dysmenorrhea, unspecified; R10.2 Pelvic and perineal pain
CPT/HCPCS: 58550; 36415; 80048; 81001; 85007; 85014; 85018; 85025; 94761; 96374; G0283; G0378; J2405; J2710

== ENCOUNTER 2022-05-24 23:03 | Emergency (ER) | payer OTHER, SELFPAY ==
[2022-05-24 23:04] VITALS: BP 132/59; PULSE 59; RESP 16; TEMP 36.6; O2SAT 100; BMI 20.1
[2022-05-24 23:21] LABS: POC Glucose,Bedside 118 (70-110)
[2022-05-24 23:31] VITALS: BP 122/69; PULSE 61; O2SAT 97
[2022-05-24 23:38] LABS: Coronavirus 19, PCR Not Detected (NotDetected); Influenza A, PCR Not Detected (NotDetected); Influenza B, PCR Not Detected (NotDetected)
--- NOTE | 2022-05-24 23:51 | HMH.EDGENADL ---
Discharge Plan Disposition Patient Disposition: Home, Self-Care Condition: Good Chief Complaint: Dizziness Prescriptions Prescriptions: No Action No Known Home Medications Referrals Follow up/Referrals: Venkata Baker MD [Primary Care Provider] - See instructions Activity Restrictions/Add. Instructions Additional Instructions/Restrictions: Home medication as directed. Follow-up PCP in 1 to 2 days. Return the emergency part for fever, shortness of breath Clinical Impressions Clinical Impression: Fatigue Discharge ED Provider: Cordell Anderson Adult [facility] General Chief complaint: Dizziness Stated complaint: dizzy, shakey, weakness Time Seen by Provider: 05/24/22 23:18 Mode of Arrival: Family Vehicle Source of Information: Patient Limitations: No Limitations Description of Symptoms (Recalled from ER Triage Doc. by RN): Pt c/o feeling dizzy, weak, & tired for 1 week. She also c/o persistant nausea without vomiting or diarrhea. Denies any body aches or pain. She does report and hx of blood transfusion and is supposed to take daily iron for anemia but she has not been taking it for some time. Denies any cough, SOA, or fevers. History of Present Illness HPI narrative: 31yo F evaluated in the emergency department for feeling weak, dizzy, tired for 1 week. Planes of nausea without vomiting. Denies known sick contact. Denies body aches or pain. Reports history of iron deficiency anemia for which she is supposed to take iron tablets but states she does not because she does not like them. Related Data Home Medications Medication Instructions Recorded Confirmed No Known Home Medications 05/24/22 05/24/22 Allergies Allergy/AdvReac Type Severity Reaction Status Date / Time No Known Allergies Allergy Verified 10/31/20 09:48 [facility] Disclaimer: The information contained in this section may have been updated after the patient was seen, as this information can be updated by other users. Social History Smoking Status: Current every day smoker tobacco type: cigarettes packs per day: 1 second hand exposure: No alcohol intake: never substance use type: denies use current occupational status: employed Travel in the last 8 weeks: None household members: spouse housing: apartment current occupation: [employer] current occupational exposures/hazards: No caffeine: Yes ROS Obtained: Yes Systems reviewed as appropriate & no additional complaints except as documented Physical Exam General General appearance: alert and in no apparent distress Head Head exam: atraumatic Eye Eye exam: Present normal appearance, PERRL and other (No conjunctival pallor) Neck Neck exam: Present trachea midline Respiratory Respiratory exam: Present normal lung sounds bilaterally Cardiovascular Cardiovascular exam: Present regular rate and normal rhythm Abdominal Exam Abdominal exam: Present soft; Absent distention or tenderness Extremities Exam Extremities exam: Present normal inspection and normal capillary refill; Absent tenderness or edema Neurological Exam Neurological exam: Present alert, oriented X3 and CN II-XII intact Psychiatric Psychiatric exam: Present normal affect Skin Skin exam: Present warm and dry Medical Decision Making Medical Records Medical records reviewed: Yes I reviewed the patient's medical records. Oscar Inquiry Pt receiving controlled substance: No Oscar was queried for this patient: No Vital Signs: 05/24/22 23:04 Temperature 97.8 F Temperature Source Oral Pulse Rate [Right] 59 L Respiratory Rate 16 Blood Pressure [Right Arm] 132/59 L Blood Pressure Mean [Right Arm] 83 Blood Pressure Source [Right Arm] Automatic Cuff 02 Sat by Pulse Oximetry 100 Oxygen Delivery Method Room Air Lab Data Lab results reviewed: Yes I reviewed the patient's lab results. Lab Results 05/24/22 23:09: POC Glucose 118
[2022-05-25] VITALS: BP 126/75; PULSE 61; O2SAT 99
[2022-05-25 00:04] LABS: Basophils # 0.1 K/mm3 (0-0.2); Basophils % 1.4 % (0.1-2.0); Eosinophils # 0.5 K/mm3 (0.0-0.4); Eosinophils % 4.7 % (0.1-12.0); Hematocrit 42.1 % (37.0-47.0); Hemoglobin 14.3 g/dL (12.2-16.2); Lymphocytes # 3.9 K/mm3 (0.7-4.5); Lymphocytes % 38.9 % (10-50); Mean Corpuscular Hemoglobin 31.4 pg (27.0-31.2); Mean Corpuscular Volume 92.3 fl (81-99); Mean Platelet Volume 8.5 fl (7.4-10.4); Monocytes # 0.3 K/mm3 (0.1-1.0); Monocytes % 2.5 % (1.7-9.3); Neutrophils # 5.2 K/mm3 (1.8-7.8); Neutrophils % 52.5 % (37.0-80.0); Platelet Count 283 K/mm3 (142-424); Red Blood Count 4.56 M/mm3 (4.20-5.40); Red Cell Distribution Width 13.2 % (11.5-17.5)
[2022-05-25 00:05] LABS: Chloride 106 mmol/L (98-107); Potassium 3.6 mmoL/L (3.5-5.1); Sodium 141 mmol/L (136-145)
[2022-05-25 00:09] LABS: Anion Gap 11.6 mEq/L (5-15); Blood Urea Nitrogen 10 mg/dl (7-17); Calcium 8.9 mg/dl (8.4-10.2); Carbon Dioxide 27 mmol/L (22.0-30.0); Creatinine Clearance Estimated 81 mL/min (50-200); Estimated Glomerular Filt Rate 84 ml/min (>60); GFR (African American) 102 ML/MIN (>60); Glucose 91 mg/dl (74-100)
[2022-05-25 00:30] VITALS: BP 104/79; PULSE 51; O2SAT 86
[2022-05-25 00:34] VITALS: BP 104/79; PULSE 55; RESP 16; TEMP 36.6; O2SAT 99
== END 2022-05-25 00:40 | disposition home or self-care (01) ==
PROVIDERS: Emergency Provider Family Medicine; PCP Internal Medicine Adolescent Medicine
DX: R53.83 Other fatigue (principal); R53.1 Weakness; R42 Dizziness and giddiness; F17.210 Nicotine dependence, cigarettes, uncomplicated; Z20.822 Contact with and (suspected) exposure to COVID-19
CPT/HCPCS: 80048; 82962; 85025; 99285; C9803; U0003; U0005

== ENCOUNTER → 2022-08-26 15:37 | Outpatient (CLI) | payer OTHER, SELFPAY ==
--- NOTE | 2022-08-26 15:43 | US_ITS ---
FINAL REPORT CLINICAL HISTORY: MASS FINDINGS: US EXTREMITY, NONVASCULAR, LIMITED, ANATOMIC SPECIFIC Limited sonographic images were obtained of the left lower extremity. At the area of the palpable abnormality is a 2.3 x 0.3 cm isoechoic to hypoechoic mass. This does not communicate with the deeper structures. IMPRESSION: Isoechoic to hypoechoic 2.3 cm mass at the area of interest may reflect a small hematoma. Reviewed, Interpreted and Dictated by Cornelio Ivy MD Transcribed by Everton Hudson Authenticated and [facility]
== END ==
PROVIDERS: PCP Internal Medicine Adolescent Medicine; Visit Provider Nurse Practitioner Family
DX: R22.42 Localized swelling, mass and lump, left lower limb (principal)
CPT/HCPCS: 76882

== ENCOUNTER → 2022-09-18 13:32 | Outpatient (CLI) | payer OTHER, SELFPAY ==
[2022-09-18 14:12] LABS: Urine Pregnancy, HCG Qual. Negative (Negative)
[2022-09-18 14:42] LABS: Anion Gap 17.4 mEq/L (5-15); Blood Urea Nitrogen 11 mg/dl (7-17); Calcium 9.5 mg/dl (8.4-10.2); Carbon Dioxide 28 mmol/L (22.0-30.0); Chloride 97 mmol/L (98-107); Estimated Glomerular Filt Rate 117 ml/min (>60); GFR (African American) 141 ML/MIN (>60); Glucose 91 mg/dl (74-100); Potassium 4.4 mmoL/L (3.5-5.1); Sodium 138 mmol/L (136-145)
[2022-09-18 14:43] LABS: Basophils # 0.1 K/mm3 (0-0.2); Basophils % 0.9 % (0.1-2.0); Eosinophils # 0.9 K/mm3 (0.0-0.4); Eosinophils % 6.3 % (0.1-12.0); Hematocrit 43.9 % (37.0-47.0); Hemoglobin 14.3 g/dL (12.2-16.2); Lymphocytes # 4.1 K/mm3 (0.7-4.5); Lymphocytes % 27.8 % (10-50); Mean Corpuscular HGB Conc 32.6 g/dL (31.8-35.4); Mean Corpuscular Volume 94.8 fl (81-99); Mean Platelet Volume 7.6 fl (7.4-10.4); Monocytes # 0.7 K/mm3 (0.1-1.0); Monocytes % 4.7 % (1.7-9.3); Neutrophils % 60.3 % (37.0-80.0); Platelet Count 343 K/mm3 (142-424); Red Blood Count 4.63 M/mm3 (4.20-5.40); Red Cell Distribution Width 13.9 % (11.5-17.5); White Blood Count 14.9 K/mm3 (4.8-10.8)
== END ==
PROVIDERS: PCP Internal Medicine Adolescent Medicine; Visit Provider Surgery
DX: R22.42 Localized swelling, mass and lump, left lower limb (principal); Z01.812 Encounter for preprocedural laboratory examination
CPT/HCPCS: 36415; 80048; 81025; 85025

== ENCOUNTER 2022-10-17 07:51 | Day surgery (SDC) | payer OTHER, SELFPAY ==
[2022-10-16 13:43] VITALS: BMI 21.0
[2022-10-17] VITALS (11 sets, daily range): BP systolic 105–135; BP diastolic 57–86; PULSE 59–80; RESP 16–18; TEMP 36.2–43; O2SAT 96–100
--- NOTE | 2022-10-17 09:52 | P.OP_ITS ---
Date of procedure: 10/17/22 Pre-op Diagnosis:: Left lower extremity soft tissue mass (2.3 cm) Post-op Diagnosis:: Same Procedure performed:: Excision of 2.3 cm left lower extremity mass Surgeon:: Luis Alberto Kim MD Anesthesia: local and LMA Estimated blood loss (mL): 5 Operative findings:: Focal muscular hypertrophy No definitive hematoma or mass lesion identified within musculature or in subcutaneous tissue Overlying skin and subcutaneous tissue excised Operative note:: After informed consent was obtained the patient was taken to the operating room and placed in the supine position. General anesthesia with laryngeal mask airway was achieved. Her left lower extremity was prepped and draped in a sterile fashion. An elliptical incision around the palpable nodularity was made along the lateral lower left leg. The skin and subcutaneous tissue was transected and passed off for pathologic evaluation. The fascial margin was opened exposing some apparent muscular hypertrophy. Palpation to the bony margin revealed no definitive mass lesion. No definitive mass lesion within the musculature was noted. The decision was made to forego extended exploration. The entire region was infiltrated with 1% lidocaine. Skin was then reapp roximated with interrupted 4-0 nylon. Dressings were applied and the patient was transferred to recovery in stable condition. Condition: stable Disposition: PACU Specimens:: Skin and subcutaneous tissue overlying palpable left lower extremity mass Complications:: No immediate
--- NOTE | 2022-10-17 10:02 | P.PNANES_ITS ---
[facility] Anesthesia Record Part I Anesthesia Record I Intake, IV Amount: 900 Estimated blood loss (mL): 5 Urine output (mL): 0 Blood Products used (#): none Blood Pressure: 135/86 SaO2: 97 Pulse Rate: 80 Respiratory Rate: 18 Temperature: 97.3 F Patient is:: Drowsy and Stable Stable to PACU at:: 09:55
--- NOTE | 2022-10-17 11:28 | P.PNANES_ITS ---
[facility] Anesthesia Record Part II Anesthesia Record Part II Discharge Time: 10:25 Destination: Surgical Day Care (OP Surgery) PACU nurse assessment reviewed?: Yes Patient Condition:: Good Anesthesia Complications:: None Swallowing reflex intact?: Yes Cyanosis?: No Blood Pressure: 129/76 Pulse Rate: 72 Temperature: 97.4 F Mental Status: Alert & Oriented Pain level:: 0 Nausea and/or vomitting:: None Intake, IV Amount: 0
== END 2022-10-17 10:56 | disposition home or self-care (01) ==
PROVIDERS: PCP Internal Medicine Adolescent Medicine; Visit Provider Surgery
PROC: (CPT 11403; principal; 2022-10-17 09:15)
DX: M62.89 Other specified disorders of muscle (principal); R22.42 Localized swelling, mass and lump, left lower limb
CPT/HCPCS: 11403; 96374; J2405

== ENCOUNTER → 2022-12-16 08:40 | Outpatient (POV) | payer OTHER, SELFPAY ==
[2022-12-16 09:04] VITALS: BP 118/58; PULSE 63; RESP 18; O2SAT 99; BMI 20.8
--- NOTE | 2022-12-16 09:14 | EXP.PAIN.OV ---
HPI Data of Consult Patient: new to practice Requesting Physician: Palak Hoffman APRN Primary Care Provider: Venkata Baker MD Consult Narrative Reason for consult: Left ankle pain, left lower leg pain History of present illness: Ms. Jean is a 32 year old female who presents today as a new patient. She is a referral from Dr. Kim's office. Today she rates her pain an 8 out of 10. Patient states her pain is all in her left ankle and left lower extremity. Patient states this is all related to a procedure where she had a cyst removed approximately [address] Kim. She states that they were concerned that it could possibly be cancerous however she states it was negative. She does state that she is continued to have this pain following her surgery and describes it as a sharp achy sensation that goes from her incision up to her left knee. Patient does have numbness into her foot. Patient has tried [id number] Tylenol along with heat and ice and topicals such as IcyHot with minimal relief. Patient states that she was given gabapentin 100 mg at bedtime however she was not able to tolerate it due to feeling drunk and hung over the following day. Patient denies any heart or kidney issues. Her Oscar is [phone]. Its been reviewed and appropriate. CC: Palak Hoffman APRN [facility] Disclaimer: The information contained in this section may have been updated after the patient was seen, as this information can be updated by other users. Medical History No significant past medical history Surgical History History of excision of mass History of partial hysterectomy Family History Other Family history of hyperlipidemia Family history of hypertension Family history of myocardial infarction Social History (Updated 12/16/22 @ 09:04 by Madhavi Solis RN) Smoking Status: Current every day smoker tobacco type: cigarettes packs per day: 1 pack-years: 16 second hand exposure: No alcohol intake: never substance use type: denies use current occupational status: unemployed Travel in the last 8 weeks: None household members: spouse and children housing: apartment lives independently: No marital status: education level: high school service: No current occupation: [employer] current occupational exposures/hazards: No caffeine: Yes special zhanna needs: No do you feel safe at home: Yes victim of physical abuse: No victim of emotional abuse: No victim of sexual abuse: No would you like helpful sources: No Review of Systems Review of Systems Review of systems:: pertinent systems reviewed and negative unless documented below Review of systems (narrative): Review of Systems: General: No recent weight changes, no fever, no sleep disturbances Respiratory: No cough, no shortness of air, no recurring pulmonary infections Cardiovascular/peripheral vascular: No chest pain, no palpitations, no edema, no shortness of breath Gastrointestinal: No new onset incontinence, normal bowel movements reported Genitourinary: No new onset incontinence Musculoskeletal: Left ankle pain, left lower leg pain Psychiatric: [Normal mood/affect] Neurological: [Denies weakness in extremities], [denies balance issues] Meds Home Medications and Allergies Home Medications Medication Instructions Recorded Confirmed Type escitalopram oxalate 10 mg tablet 10 mg PO DAILY mood 09/18/22 11/27/22 History mirtazapine 15 mg tablet 15 mg PO DAILY . 09/18/22 11/27/22 History New Prescriptions to Start Prescriptions: Allergies Allergy/AdvReac Type Severity Reaction Status Date / Time No Known Allergies Allergy Verified 11/27/22 10:25 Objective Vital signs: Pulse Resp BP Pulse Ox O2 Del Method 63
== END | disposition home or self-care (01) ==
PROVIDERS: PCP Internal Medicine Adolescent Medicine; Visit Provider Nurse Practitioner Family
DX: M79.89 Other specified soft tissue disorders (principal); M79.605 Pain in left leg; M25.572 Pain in left ankle and joints of left foot; R20.0 Anesthesia of skin
CPT/HCPCS: 99202; G0463

== ENCOUNTER → 2023-01-16 08:58 | Outpatient (POV) | payer OTHER, SELFPAY ==
--- NOTE | 2023-01-16 09:09 | EXP.PAIN.SOA ---
[facility] Pain Management SOAP Note Subjective:: Patient is a pleasant 32-year-old female who presents today for 1 month follow-up. We are currently treating the patient for left ankle pain, left lower leg mass, left leg pain. Today she rates her pain a 7 out of 10. Patient denies any new trauma or injury. She denies any change location or type of She experiences. Patient was given compounding cream at our last visit along with meloxicam 7.5 mg daily. Patient states that the compounding cream did cause some burning sensations and she did not use it after that. She states that the meloxicam and she did not really notice any additional improvement. Patient does deny any kidney or heart issues. Patient has tried exgm-[id number]-ggmnkmv medicine such as Tylenol and ibuprofen along with being prescribed gabapentin 100 mg at bedtime however she was unable to tolerate this due to feeling hung over. At our last visit we did discuss the possibility of a sympathetic nerve block for her continued left ankle pain however she stated she had a fear of needles. Her Oscar is [id number]. Its been reviewed and appropriate. Review of Systems: General: No recent weight changes, no fever, no sleep disturbances Respiratory: No cough, no shortness of air, no recurring pulmonary infections Cardiovascular/peripheral vascular: No chest pain, no palpitations, no edema, no shortness of breath Gastrointestinal: No new onset incontinence, normal bowel movements reported Genitourinary: No new onset incontinence Musculoskeletal: Left ankle pain Psychiatric: [Normal mood/affect] Neurological: [Denies weakness in extremities], [denies balance issues] Objective:: Physical Exam: General: Alert and oriented x3, no acute distress, pleasant and cooperative Lungs: Respirations even and unlabored, symmetrical chest expansion Eyes: PERRL Musculoskeletal: Flexion and extension of left ankle somewhat guarded secondary to pain, [antalgic gait noted] Neurological: Speech clear, no gross sensory deficit Assessment:: Left ankle pain, lower left leg mass, left leg pain/numbness Plan:: patient continues to experience significant pain in her left ankle with limited range of motion. I have reviewed again with the patient that she may benefit from a sympathetic nerve block however she does still want to wait on this option due to her fear of needles. I will increase her meloxicam to 15 mg daily and provide a 1 month supply of this medication. Patient will return to clinic in 1 month for reevaluation of symptoms and plan of care. Patient has been instructed to contact the clinic with any concerns before the next appointment. Dr. Mcclain has reviewed this note and agrees with this plan of care. This note was dictated using voice recognition software and make contain errors or omissions. [facility] Disclaimer: The information contained in this section may have been updated after the patient was seen, as this information can be updated by other users. Medical History No significant past medical history Surgical History History of excision of mass History of partial hysterectomy Family History Other Family history of hyperlipidemia Family history of hypertension Family history of myocardial infarction Social History (Updated 12/16/22 @ 09:04 by Madhavi Solis RN) Smoking Status: Current every day smoker tobacco type: cigarettes packs per day: 1 pack-years: 16 second hand exposure: No alcohol intake: never substance use type: denies use current occupational status: unemployed Travel in the last 8 weeks: None household members: spouse and children housing: apartment lives independently: No marital status: education level: high school service: No current occupation: [employer]
[2023-01-16 11:57] VITALS: BP 119/65; PULSE 72; RESP 18; O2SAT 99; BMI 20.8
== END | disposition home or self-care (01) ==
PROVIDERS: PCP Internal Medicine Adolescent Medicine; Visit Provider Nurse Practitioner Family
DX: M25.572 Pain in left ankle and joints of left foot (principal); R22.42 Localized swelling, mass and lump, left lower limb; M79.605 Pain in left leg
CPT/HCPCS: 99212; G0463

== ENCOUNTER 2023-06-08 14:34 | Emergency (ER) | payer OTHER, SELFPAY ==
[2023-06-08 15:47] VITALS: BP 125/70; PULSE 87; RESP 16; TEMP 37.7; O2SAT 96; BMI 18.4
--- NOTE | 2023-06-08 15:52 | ED_ITS ---
Discharge Plan Disposition Patient Disposition: Home, Self-Care Condition: Good Prescriptions Prescriptions: New azithromycin [Zithromax] 250 mg tablet 250 mg PO UD DOSE PK Qty: 6 0RF Rx Instructions: Take two (2) tablets today, then one (1) tablet days #2 thru #5 benzonatate [benzonatate] 100 mg capsule 100 mg PO TIDP PRN (Reason: Cough) Qty: 30 0RF methylprednisolone 4 mg Tablets,Dose Pack 4 mg PO DIRECTED 6 Days Qty: 21 0RF Rx Instructions: Take 1 pack as directed for 6 days ondansetron 4 mg Tablet,Disintegrating 4 mg PO Q8H PRN (Reason: Nausea) Qty: 6 0RF No Action mirtazapine 15 mg tablet 15 mg PO DAILY Patient Comments: TAKE 1/2 (ONE-HALF) TABLET BY MOUTH AT BEDTIME escitalopram oxalate 10 mg tablet 10 mg PO DAILY meloxicam 15 mg tablet 15 mg PO DAILY Qty: 30 0RF Referrals Follow up/Referrals: Venkata Baker MD [Primary Care Provider] - See instructions Activity Restrictions/Add. Instructions Additional Instructions/Restrictions: Drink plenty of fluids. Take tylenol or ibuprofen for pain or fever. Take the medications as directed. Follow up with your regular doctor. GO TO THE ER FOR ANY WORSENING SYMPTOMS Clinical Impressions Clinical Impression: Influenza B, Bronchitis Instructions Patient Instructions: DI for Acute Bronchitis, DI for Influenza -- Adult Discharge ED Provider: Martínez Landa [facility] HPI General Stated complaint: Sore throat, congestion, cough, fever 103 Mode of Arrival: Ambulatory Source of Information: Patient Limitations: No Limitations Time Seen by Provider: 06/08/23 15:52 Description of Symptoms (Recalled from Triage Doc. by RN): Patient reports being exposed to the flu. Complaint of body aches and fever. HEENT Symptoms (Recalled from RN notes): Yes Resp Symptoms (Recalled from RN notes): No Skin Symptoms (Recalled from RN notes): No MS Symptoms (Recalled from RN notes): No Functional Status (Recalled from RN notes): wnl History of Present Illness Provider Complaint: She states that for the past 4 days she has had chest congestion, malaise, body aches, cough, and sore throat. Related Data Home Medications Medication Instructions Recorded Confirmed escitalopram oxalate 10 mg tablet 10 mg PO DAILY mood 09/18/22 01/16/23 mirtazapine 15 mg tablet 15 mg PO DAILY . 09/18/22 01/16/23 Previous Rx's Medication Instructions Recorded meloxicam 15 mg tablet 15 mg PO DAILY #30 tabs 01/16/23 azithromycin 250 mg tablet 250 mg PO UD DOSE PK #6 tabs 06/08/23 (Zithromax) benzonatate 100 mg capsule 100 mg PO TIDP PRN Cough #30 caps 06/08/23 methylprednisolone 4 mg tablets in 4 mg PO DIRECTED 6 days #21 tabs 06/08/23 a dose pack ondansetron 4 mg disintegrating 4 mg PO Q8H PRN Nausea #6 tabs 06/08/23 tablet Allergies Allergy/AdvReac Type Severity Reaction Status Date / Time No Known Allergies Allergy Verified 11/27/22 10:25 Worker's Comp Is this a Worker's Comp case?: No [facility] Disclaimer: The information contained in this section may have been updated after the patient was seen, as this information can be updated by other users. Medical History No significant past medical history Surgical History History of excision of mass History of partial hysterectomy Family History Other Family history of hyperlipidemia Family history of hypertension Family history of myocardial infarction Social History (Updated 12/16/22 @ 09:04 by Madhavi Solis RN) Smoking Status: Current every day smoker tobacco type: cigarettes packs per day: 1 second hand exposure: No alcohol intake: never substance use type: denies use current occupational status: unemployed Travel in the last 8 weeks: None household members: spouse and children housing: apartment lives independently: No marital status: education level: high school service: No current occupation: [employer] current occupational exposures/hazards: No caffeine: Yes special zhanna needs: No do you feel safe at home: Yes victim of physical abuse: No victim of emotional abuse: No victim of sexual abuse: No would you like helpful sources: No ROS Obtained: Yes All systems reviewed & no additional complaints except as documented Constitutional Constitutional: Reports chills and Reports fever(s) Eyes Eyes: Denies eye discharge ENT Ears, Nose, Mouth, and Throat: Reports as per HPI Cardiovascular Cardiovascular: Denies chest pain Respiratory Respiratory: Denies chest congestion and Reports cough Gastrointestinal Gastrointestingal: Reports nausea; Denies abdominal pain, constipation, cramping, diarrhea or vomiting Musculoskeletal Musculoskeletal: Denies arthralgias Integumentary/Breasts Skin/Breast: Denies rash Neurologic Neurologic: Denies paresthesias Physical Exam General General appearance: alert and in no apparent distress Eye Eye exam: Present normal appearance, PERRL and EOMI ENT ENT exam: Present mucous membranes moist and normal external ear exam Expanded ENT Exam External ear exam: Present normal external inspection TM/Canal exam: Bilateral TM: erythema and bulging Nose exam: Absent sinus tenderness Nasal speculum exam: Bilateral: normal Mouth exam: Present normal external inspection; Absent drooling Teeth exam: Present normal inspection Throat exam: Present tonsillar erythema and tonsillomegaly Neck Neck exam: Present normal inspection, full ROM and trachea midline; Absent tenderness, lymphadenopathy or thyromegaly Chest Chest inspection: Present normal inspection and symmetric chest wall rise; Absent tenderness or rash Respiratory Respiratory exam: Present normal lung sounds bilaterally; Absent respiratory distress, wheezes, stridor or accessory muscle use Cardiovascular Cardiovascular exam: Present regular rate, normal rhythm and normal heart sounds Abdominal Exam Abdominal exam: Present soft; Absent distention, tenderness, guarding, rebound or rigidity Extremities Exam Extremities exam: Present normal inspection, full ROM and normal capillary refill; Absent tenderness or calf tenderness Back Exam Back exam: Present normal inspection and full ROM; Absent tenderness Neurological Exam Neurological exam: Present alert and oriented X3 Psychiatric Psychiatric exam: Present normal affect and normal mood Skin Skin exam: Present warm, dry, intact and normal color Lymphatic Lymphatic Findings: no adenopathy Medical Decision Making Medical Records Medical records reviewed: No I reviewed the patient's medical records. Oscar Inquiry Pt receiving controlled substance: No Vital Signs: 06/08/23 15:47 Temperature 99.9 F H Temperature Source Oral Pulse Rate [Radial] 87 Respiratory Rate 16 Blood Pressure [Right Arm] 125/70 Blood Pressure Mean [Right Arm] 88 Blood Pressure Source [Right Arm] Automatic Cuff Blood Pressure Position [Right Arm] Sitting 02 Sat by Pulse Oximetry 96 Oxygen Delivery Method Room Air Lab Data Lab results reviewed: Yes I reviewed the patient's lab results.
[2023-06-08 16:09] LABS: UTC Influenza A Antigen Negative (Negative)
[2023-06-08 16:10] LABS: UTC Influenza B Antigen Positive (Negative)
[2023-06-08 16:21] VITALS: BP 125/70; PULSE 87; RESP 16; TEMP 37.7; O2SAT 96
== END 2023-06-08 16:21 | disposition home or self-care (01) ==
PROVIDERS: Emergency Provider Nurse Practitioner Family; PCP Internal Medicine Adolescent Medicine
DX: J10.1 Influenza due to other identified influenza virus with other respiratory manifestations (principal); J20.9 Acute bronchitis, unspecified; R07.0 Pain in throat; R05.9 Cough, unspecified; R11.0 Nausea; F17.210 Nicotine dependence, cigarettes, uncomplicated; R09.89 Other specified symptoms and signs involving the circulatory and respiratory systems
CPT/HCPCS: 87804; 99204; 99212; G0463

== ENCOUNTER 2023-11-03 15:52 | Outpatient (CLI) | payer OTHER, SELFPAY ==
--- NOTE | 2023-11-03 15:56 | US_ITS ---
PROCEDURE: US TRANSVAGINAL CLINICAL INDICATION: DEEP DYSPAREUNIA COMPARISON: US US TRANSVAGINAL from 08/29/2020 FINDINGS: Transvaginal sonographic images of the pelvis were obtained. UTERUS: The uterus is surgically absent. The vaginal vault is intact. Bowel is seen in the midline at the top of vaginal vault. LEFT OVARY: 2.2cmx1.6 cmx1.7cm with a volume of 3.1ml. There are 2 small follicles in left ovary. The largest measures 1.1 cm. RIGHT OVARY: 2.6 cmx 1.1cmx1.7 cm with a volume of 2.7ml. There are 2 small follicles in the right ovary. The largest measures 1.0 cm. Both ovaries are seen and appear normal. Doppler flow to both ovaries are seen. There is no fluid in the cul-de-sac. IMPRESSION: 1. The uterus is surgically absent. The vaginal vault is intact. 2. Both ovaries are seen and appear normal. Both ovaries have small follicles. 3. No fluid in the cul-de-sac. Dictated by: Drake Hanson MD 11/04/2023 05:37 Drake Hanson MD in OV 11/04/2023 05:37
== END 2023-11-03 23:59 | disposition home or self-care (01) ==
LOC: RAD 15:53
PROVIDERS: PCP Nurse Practitioner Family; Visit Provider Nurse Practitioner Family
DX: N94.12 Deep dyspareunia (principal)
CPT/HCPCS: 76830

== ENCOUNTER 2023-11-22 08:56 | Outpatient (CLI) | payer OTHER, SELFPAY ==
[2023-11-22 09:33] LABS: Chloride 109 mmol/L (98-107); Potassium 4.1 mmoL/L (3.5-5.1); Sodium 141 mmol/L (136-145)
[2023-11-22 09:36] LABS: Anion Gap 9.1 mEq/L (5-15); Blood Urea Nitrogen 9 mg/dl (7-17); Carbon Dioxide 27 mmol/L (22.0-30.0); Estimated Glomerular Filt Rate 97 ml/min (>60); GFR (African American) 117 ML/MIN (>60)
[2023-11-22 09:37] LABS: Calcium 9.6 mg/dl (8.4-10.2); Glucose 95 mg/dl (74-100)
[2023-11-28 19:09] LABS: C-Telopeptide Serum 393 pg/mL (.)
== END 2023-11-22 23:59 | disposition home or self-care (01) ==
PROVIDERS: PCP Physician Assistant; Visit Provider Physician Assistant
DX: Z86.39 Personal history of other endocrine, nutritional and metabolic disease (principal)
CPT/HCPCS: 36415; 80048; 82523; 82533; 83525

== ENCOUNTER 2023-11-27 06:59 | Outpatient (CLI) | payer OTHER, SELFPAY ==
[2023-11-27 08:40] LABS: Anion Gap 10.8 mEq/L (5-15); Blood Urea Nitrogen 16 mg/dl (7-17); Calcium 8.9 mg/dl (8.4-10.2); Carbon Dioxide 25 mmol/L (22.0-30.0); Chloride 107 mmol/L (98-107); Estimated Glomerular Filt Rate 97 ml/min (>60); GFR (African American) 117 ML/MIN (>60); Glucose 87 mg/dl (74-100); Potassium 3.8 mmoL/L (3.5-5.1); Sodium 139 mmol/L (136-145)
[2023-11-28 05:09] LABS: Insulin Level Total 10.3 uIU/mL (2.6-24.9)
[2023-11-28 08:30] LABS: C-Peptide 2.9 ng/mL (1.1-4.4)
[2023-11-28 13:14] LABS: Adrenocorticotropic Hormone 45.3 pg/mL (7.2-63.3)
== END 2023-11-27 23:59 | disposition home or self-care (01) ==
LOC: LAB 07:01
PROVIDERS: Internal Medicine Adolescent Medicine; PCP Physician Assistant; Visit Provider Physician Assistant
DX: E16.2 Hypoglycemia, unspecified; Z86.39 Personal history of other endocrine, nutritional and metabolic disease
CPT/HCPCS: 36415; 80048; 82024; 82533; 83525; 84681

== ENCOUNTER 2025-01-09 21:42 | Emergency (ER) | payer OTHER, SELFPAY ==
[2025-01-09 21:44] VITALS: BP 115/57; PULSE 63; RESP 24; TEMP 36.4; O2SAT 100; BMI 20.8
--- OUTSIDE RECORDS SUMMARY | 2025-01-09 21:52 | XMS_ITS | Clinical Summary ---
Author Organization [facility] Address [address] [place], [place] [id number] Care Team Providers Care Program Manager Environmental Planning Name Role Phone Venkata Baker MD Primary Care Provider [phone] Allergies No known active allergies Social History Tobacco Use Types Packs/Day Years Used Date Smoking Tobacco: Never Assessed Comments Unknown Sex and Gender Information Value Date Recorded Sex Assigned at Not on file Legal Sex Female 8:32 PM EDT Gender Identity Not on file Sexual Orientation Not on file Last Filed Vital Signs Vital Sign Reading Time Taken Comments Blood Pressure 134/82 08/28/2024 11:58 AM EDT Pulse 57 08/28/2024 11:58 AM EDT Temperature 36.6 C (97.9 F) 08/28/2024 11:58 AM EDT Respiratory Rate 15 08/28/2024 11:58 AM EDT Oxygen Saturation 100% 08/28/2024 11:58 AM EDT Inhaled Oxygen Concentration - - Weight 49.9 kg (110 lb) 08/28/2024 11:58 AM EDT Height - - Body Mass Index - - Plan of Treatment Health Maintenance Due Date Last Done Comments [facility]-Depression Screening 1991 [facility]-HIV Screening 1991 [facility]-Hepatitis C Screening 1991 [facility]-/Child/Adol SDOH Screenings 1991 [facility]-Varicella Vaccines (1 of 2 - 13+ 2-dose series) 07/04/2004 [facility]- SDOH Screenings 07/04/2009 [facility]-Adult SDOH Screenings 07/04/2009 [facility]-Hepatitis B Vaccines (1 of 3 - 19+ 3-dose series) 07/04/2010 [facility]-Pap Smear 07/04/2012 HPV Vaccines (1 - 3-dose SCD M series) 07/04/2018 [facility]-Cervical Cancer Screening 07/04/2021 [facility]-HPV/Cotest 07/04/2021 [id number] Vaccine (1 - 20 24- season) 2024 [facility]-Influenza Vaccine (#1) 2024 03/21/2008 [facility]-DTaP,Tdap,and Td Vaccine s (2 - Td or Tdap) 08/23/2034 08/23/2024 [facility]-Zoster Vaccines (1 of 2) 07/04/2041 [facility]-HIB Vaccines Aged Out No longer e ligible based on patient's age to complete this topic [facility]-Hepatitis A Vaccines Aged Out No longer eligible based on patient's age to complete this topic [facility]-IPV Vaccines Aged Out No longer e ligible based on patient's age to complete this topic [facility]-Pneumococcal Vaccine: Pediatrics (0 to 5 Years) and At-Risk Patients (6 to 49 Years) Aged Out No long er eligible based on patient's age to complete this topic [facility]-Rotavirus Vaccines Aged Out No lo nger eligible based on patient's age to complete this topic Insurance [place] [id number] [employer] Care Teams Program Manager Environmental Planning Relationship Specialty Start Date End Date Venkata Baker MD [address] [place] [id number] PCP - General Internal Medicine 08/28/24
--- NOTE | 2025-01-09 21:55 | HMH.EDGENADL ---
Discharge Plan Disposition Patient Disposition: Home, Self-Care Condition: Good Prescriptions Prescriptions: No Action mirtazapine 15 mg tablet 15 mg PO DAILY Patient Comments: TAKE 1/2 (ONE-HALF) TABLET BY MOUTH AT BEDTIME escitalopram oxalate 10 mg tablet 10 mg PO DAILY meloxicam 15 mg tablet 15 mg PO DAILY Qty: 30 0RF azithromycin [Zithromax] 250 mg tablet 250 mg PO UD DOSE PK Qty: 6 0RF Rx Instructions: Take two (2) tablets today, then one (1) tablet days #2 thru #5 benzonatate [benzonatate] 100 mg capsule 100 mg PO TIDP PRN (Reason: Cough) Qty: 30 0RF methylprednisolone 4 mg Tablets,Dose Pack 4 mg PO DIRECTED 6 Days Qty: 21 0RF Rx Instructions: Take 1 pack as directed for 6 days ondansetron 4 mg Tablet,Disintegrating 4 mg PO Q8H PRN (Reason: Nausea) Qty: 6 0RF Referrals Follow up/Referrals: Venkata Baker MD [Staff Physician, Internal Medicine] - See instructions Referral Note: Follow up headaches Teena Grace APRN [Primary Care Provider, Medical] - See instructions Activity Restrictions/Add. Instructions Additional Instructions/Restrictions: You were evaluated in the ER and are believed to be appropriate for discharge at this time. Continue any home medications as previously prescribed. Drink plenty of water, Gatorade, Pedialyte to stay well-hydrated which should also help with your headaches. Please call your primary care office (Dr. Baker's number is included) first thing Friday morning to make an appointment to be reevaluated and to discuss migraine rescue medication samples and potential prior authorization for a long-standing prescription if they believe it is indicated. They may also want to refer you to neurology. Return to the ER with any new, worsening, or otherwise concerning symptoms. Clinical Impressions Clinical Impression: Headache Instructions Patient Instructions: DI for Migraine, DI for Headache Print Language Print Language: Citizen Of [place] Discharge ED Provider: Adebayo Trammell General Adult HPI <kEaterina Gibson APRN - Last Filed: 01/09/25 22:11> General Chief complaint: Headache Stated complaint: headache Time Seen by Provider: 01/09/25 21:54 Mode of Arrival: Ambulatory Source of Information: Patient Description of Symptoms (Recalled from ER Triage Doc. by RN): patient presents to the ED for a headache that has been occuring non-stop for 2 years . patient is not prescribed anything for it. History of Present Illness HPI narrative: patient is a 34-year-old female PMHx headaches x 2-year. Patient states that her headaches are intermittent, she has been unable to find a trigger for her headaches at this time. She has been evaluated by her PCP and most recently ED where she had scans and lab workup performed. Patient states that they told her everything was negative, she was administered IV magnesium which she states did not help with her headache at that time. Related Data Home Medications ?Medication ?Instructions ?Recorded ?Confirmed escitalopram oxalate 10 mg tablet 10 mg PO DAILY mood 09/18/22 01/16/23 mirtazapine 15 mg tablet 15 mg PO DAILY . 09/18/22 01/16/23 Previous Rx's ?Medication ?Instructions ?Recorded meloxicam 15 mg tablet 15 mg PO DAILY #30 tabs 01/16/23 azithromycin 250 mg tablet 250 mg PO UD DOSE PK #6 tabs 06/08/23 (Zithromax) benzonatate 100 mg capsule 100 mg PO TIDP PRN Cough #30 caps 06/08/23 methylprednisolone 4 mg tablets in 4 mg PO DIRECTED 6 days #21 tabs 06/08/23 a dose pack ondansetron 4 mg disintegrating 4 mg PO Q8H PRN Nausea #6 tabs 06/08/23 tablet Allergies Allergy/AdvReac Type Severity Reaction Status Date / Time No Known Allergies Allergy Verified 11/27/22 10:25 COUNTS INCLUDE 234 BEDS AT THE [facility] <Ekaterina Gibson APRN - Last Filed: 01/09/25 22:11> COUNTS INCLUDE 234 BEDS AT THE [facility] Disclaimer: The information contained in this section may have been updated after the patient was seen, as this information can be updated by other users. Medical History No significant past medical history Surgical History History of excision of mass History of partial hysterectomy Family History Other Family history of hyperlipidemia Family history of hypertension Family history of myocardial infarction Social History (Updated 08/21/23 @ 09:04 by Madahvi Solis RN) Smoking Status: Current every day smoker tobacco type: cigarettes packs per day: 1 pack-years: 16 second hand exposure: No alcohol intake: never substance use type: denies use current occupational status: unemployed Travel in the last 8 weeks?: None household members: spouse and children housing: apartment lives independently: No marital status: education level: high school service: No current occupation: [employer] current occupational exposures/hazards: No caffeine: Yes special zhanna needs: No do you feel safe at home: Yes victim of physical abuse: No victim of emotional abuse: No victim of sexual abuse: No would you like helpful sources: No Have you lived/traveled outside US in past 30 days?: No Contact w/someone who lives/traveled outside US past 30 days?: No Exposure to someone with infectious disease in past 14 days?: No Do you have a fever (greater than 100.4 F or 38 C)?: No Have you tested positive for COVID-19?: No Exposed to someone with COVID-19 in past 14 days?: No Do you have a sore throat?: No Do you have a cough?: No Do you have any weakness?: No Do you have any diarrhea?: No Are you experiencing any unusual bleeding?: No Do you have any muscle aches/pain?: No Do you have any abdominal pain?: No Are you experiencing loss of taste or smell?: No Other Medical History Have you received the Flu Vaccine for this season: No Have you received the Pneumonia Vaccine: No <Ekaterina Gibson APRN - Last Filed: 01/09/25 22:11> ROS Obtained: Yes Systems reviewed as appropriate & no additional complaints except as documented Physical Exam <Ekaterina Gibson APRN - Last Filed: 01/09/25 22:11> General General appearance: alert Head Head exam: atraumatic Eye Eye exam: Present PERRL and EOMI; Absent discharge Neck Neck exam: Present full ROM Respiratory Respiratory exam: Present normal lung sounds bilaterally Cardiovascular Cardiovascular exam: Present regular rate Abdominal Exam Abdominal exam: Present soft Neurological Exam Neurological exam: Present alert and oriented X3; Absent motor sensory deficit Medical Decision Making <Ekaterina Gibson APRN - Last Filed: 01/09/25 22:11> Medical Records Screening: Per USPSTF and CDC recommendations, given the prevalence of disease in our region, it is our hospital?s policy to screen for HIV and viral Hepatitis for all patients aged 18 and over and those with ongoing risk factors. Oscar Inquiry Pt receiving controlled substance: No Vital Signs: 01/09/25 21:44 Temperature 97.6 F Temperature Source Temporal Artery Scan Pulse Rate [Right Radial] 63 Respiratory Rate 24 Blood Pressure [Right Arm] 115/57 L Blood Pressure Mean [Right Arm] 76 Blood Pressure Source [Right Arm] Automatic Cuff Blood Pressure Position [Right Arm] Sitting 02 Sat by Pulse Oximetry 100 Oxygen Delivery Method Room Air Lab Data Lab Results 01/09/25 22:05: Urine HCG, Qual Negative Orders (Tests/Meds): ED MEDICATIONS Discontinued Medications Generic Name Dose Route Start Last Admin Trade Name Magui PRN Reason Stop Dose Admin Diphenhydramine HCl 25 mg 01/09/25 21:54 01/09/25 22:14 Diphenhydramine 50mg/Ml Vial IV 01/09/25 21:55 25 mg ONCE ONE Administration Sodium Chloride 1,000 mls @ 999 mls/hr 01/09/25 21:54 01/09/25 23:27 Sod Chlor 0.9% 1000ml Bag IV 01/09/25 22:54 Infused .Q1H1M ONE Infusion Ketorolac Tromethamine 15 mg 01/09/25 21:54 01/09/25 22:14 Ketorolac 15mg/Ml Vial IV 01/09/25 21:55 15 mg ONCE ONE Administration ORDERS Category Date Time Status Urine , HCG Qual. Stat Lab 01/09/25 22:05 Completed Medical Decision Narrative: In summary, patient is a 34-year-old female PMHx headaches x 2-year. Patient states that her headaches are intermittent, she has been unable to find a trigger for her headaches at this time. She has been evaluated by her PCP and most recently [facility] where she had scans and lab workup performed. Patient states that they told her everything was negative, she was administered IV magnesium which she states did not help with her headache at that time. Patient states she has never been diagnosed with migraines however triptans and Nurtec have worked for her headache. She states they are always located on the right temporal area, describes as a throbbing pain. Upon physical exam, patient is alert, oriented and cooperative. She is hemodynamically stable. No tenderness of her temporal area, no edema noted. Patient's neurological exam is intact. No nystagmus. Patient denies fever, chills, body aches, stiff neck, nuchal rigidity, chest pain, shortness of breath, visual disturbances. Differential diagnosis include headache, migraine, neck pain. Discussed with patient we will start with normal saline, Toradol and diphenhydramine for headache relief. We will reassess after that. I also discussed with her she should follow-up with her PCP, keep a headache log, we discussed possible headache triggers including foods and drinks. Care transferred to attending pending reassessment. <Adebayo Trammell MD - Last Filed: 01/09/25 23:30> Vital Signs: 01/09/25 21:44 Temperature 97.6 F Temperature Source Temporal Artery Scan Pulse Rate [Right Radial] 63 Respiratory Rate 24 Blood Pressure [Right Arm] 115/57 L Blood Pressure Mean [Right Arm] 76 Blood Pressure Source [Right Arm] Automatic Cuff Blood Pressure Position [Right Arm] Sitting 02 Sat by Pulse Oximetry 100 Oxygen Delivery Method Room Air Lab Data Lab Results 01/09/25 22:05: Urine HCG, Qual Negative Orders (Tests/Meds): ED MEDICATIONS Discontinued Medications Generic Name Dose Route Start Last Admin Trade Name Freq PRN Reason Stop Dose Admin Diphenhydramine HCl 25 mg 01/09/25 21:54 01/09/25 22:14 Diphenhydramine 50mg/Ml Vial IV 01/09/25 21:55 25 mg ONCE ONE Administration Sodium Chloride 1,000 mls @ 999 mls/hr 01/09/25 21:54 01/09/25 23:27 Sod Chlor 0.9% 1000ml Bag IV 01/09/25 22:54 Infused .Q1H1M ONE Infusion Ketorolac Tromethamine 15 mg 01/09/25 21:54 01/09/25 22:14 Ketorolac 15mg/Ml Vial IV 01/09/25 21:55 15 mg ONCE ONE Administration ORDERS Category Date Time Status Urine , HCG Qual. Stat Lab 01/09/25 22:05 Completed Medical Decision Narrative: In summary, patient is a 34-year-old female PMHx headaches x 2-year. Patient states that her headaches are intermittent, she has been unable to find a trigger for her headaches at this time. She has been evaluated by her PCP and most recently ED where she had scans and lab workup performed. Patient states that they told her everything was negative, she was administered IV magnesium which she states did not help with her headache at that time. Patient states she has never been diagnosed with migraines however triptans and Nurtec have worked for her headache. She states they are always located on the right temporal area, describes as a throbbing pain. Upon physical exam, patient is alert, oriented and cooperative. She is hemodynamically stable. No tenderness of her temporal area, no edema noted. Patient's neurological exam is intact. No nystagmus. Patient denies fever, chills, body aches, stiff neck, nuchal rigidity, chest pain, shortness of breath, visual disturbances. Differential diagnosis include headache, migraine, neck pain. Discussed with patient we will start with normal saline, Toradol and diphenhydramine for headache relief. We will reassess after that. I also discussed with her she should follow-up with her PCP, keep a headache log, we discussed possible headache triggers including foods and drinks. Care transferred to attending pending reassessment. Adebayo Trammell: I was consulted by the DEBRA, and we discussed the complexity of the problems being addressed. I approved the treatment and management plan for this patient's care in the emergency department, thus performing a substantive portion of the medical decision making. Repeat evaluation pending at time of transition of care to the oncoming physician, Dr. Brown. <Zhao Brown MD - Last Filed: 01/09/25 23:38> Vital Signs: 01/09/25 21:44 Temperature 97.6 F Temperature Source Temporal Artery Scan Pulse Rate [Right Radial] 63 Respiratory Rate 24 Blood Pressure [Right Arm] 115/57 L Blood Pressure Mean [Right Arm] 76 Blood Pressure Source [Right Arm] Automatic Cuff Blood Pressure Position [Right Arm] Sitting 02 Sat by Pulse Oximetry 100 Oxygen Delivery Method Room Air Lab Data Lab Results 01/09/25 22:05: Urine HCG, Qual Negative Orders (Tests/Meds): ED MEDICATIONS Discontinued Medications Generic Name Dose Route Start Last Admin Trade Name Freq PRN Reason Stop Dose Admin Diphenhydramine HCl 25 mg 01/09/25 21:54 01/09/25 22:14 Diphenhydramine 50mg/Ml Vial IV 01/09/25 21:55 25 mg ONCE ONE Administration Sodium Chloride 1,000 mls @ 999 mls/hr 01/09/25 21:54 01/09/25 23:27 Sod Chlor 0.9% 1000ml Bag IV 01/09/25 22:54 Infused .Q1H1M ONE Infusion Ketorolac Tromethamine 15 mg 01/09/25 21:54 01/09/25 22:14 Ketorolac 15mg/Ml Vial IV 01/09/25 21:55 15 mg ONCE ONE Administration ORDERS Category Date Time Status Urine , HCG Qual. Stat Lab 01/09/25 22:05 Completed Medical Decision Narrative: In summary, patient is a 34-year-old female PMHx headaches x 2-year. Patient states that her headaches are intermittent, she has been unable to find a trigger for her headaches at this time. She has been evaluated by her PCP and most recently ED where she had scans and lab workup performed. Patient states that they told her everything was negative, she was administered IV magnesium which she states did not help with her headache at that time. Patient states she has never been diagnosed with migraines however triptans and Nurtec have worked for her headache. She states they are always located on the right temporal area, describes as a throbbing pain. Upon physical exam, patient is alert, oriented and cooperative. She is hemodynamically stable. No tenderness of her temporal area, no edema noted. Patient's neurological exam is intact. No nystagmus. Patient denies fever, chills, body aches, stiff neck, nuchal rigidity, chest pain, shortness of breath, visual disturbances. Differential diagnosis include headache, migraine, neck pain. Discussed with patient we will start with normal saline, Toradol and diphenhydramine for headache relief. We will reassess after that. I also discussed with her she should follow-up with her PCP, keep a headache log, we discussed possible headache triggers including foods and drinks. Care transferred to attending pending reassessment. Adebayo Trammell: I was consulted by the DEBRA, and we discussed the complexity of the problems being addressed. I approved the treatment and management plan for this patient's care in the emergency department, thus performing a substantive portion of the medical decision making. Repeat evaluation pending at time of transition of care to the oncoming physician, Dr. Brown. Brown: Upon my assumption of care patient is stable and resting comfortably, I agree with the assessment and plan from Dr. Trammell. She is reporting feeling significantly better and is comfortable going home. We discussed following up closely with her primary care office for more samples of migraine medication and possible longstanding prescription. We also discussed the possibility of neurology follow-up which would have to be referred through her primary care office. She understands this and is agreeable. Patient was given instructions on symptomatic management, follow up instructions, and return precautions for the emergency department. Patient indicated understanding and was discharged in stable condition. Critical Care <Ekaterina Gibson APRN - Last Filed: 01/09/25 22:11> Critical Care Time Critical Care Time: No
[2025-01-09] MEDS: KETOROLAC 15MG/ML VIAL 15 MG IV (22:14)
[2025-01-09] MEDS: 0.9 % SODIUM CHLORIDE 1000ML 1,000 ML 999 ML IV (22:14)
[2025-01-09 22:15] VITALS: PULSE 60; RESP 21; O2SAT 100
[2025-01-09 22:25] LABS: Urine Pregnancy, HCG Qual. Negative (Negative)
[2025-01-09 22:31] VITALS: BP 129/84
[2025-01-09 23:00] VITALS: BP 136/86; PULSE 62; RESP 15; O2SAT 100
[2025-01-09 23:30] VITALS: BP 156/79
[2025-01-09 23:45] VITALS: BP 156/79; PULSE 62; RESP 16; TEMP 36.4; O2SAT 100
== END 2025-01-09 23:47 | disposition home or self-care (01) ==
PROVIDERS: Nurse Practitioner; Emergency Provider Emergency Medicine; PCP Nurse Practitioner Family
DX: R51.9 Headache, unspecified (principal); F17.210 Nicotine dependence, cigarettes, uncomplicated
CPT/HCPCS: 81025; 96365; 99284; 99285; J1200; J1885; J7030

== ENCOUNTER 2025-02-16 00:46 | Emergency (ER) | payer OTHER, SELFPAY ==
[2025-02-16 00:52] VITALS: BP 146/77; PULSE 60; RESP 16; TEMP 36.8; O2SAT 98; BMI 19.0
--- NOTE | 2025-02-16 00:57 | HMH.EDGENADL ---
Discharge Plan Disposition Patient Disposition: Home, Self-Care Condition: Good Prescriptions Prescriptions: No Action mirtazapine 15 mg tablet 15 mg PO DAILY Patient Comments: TAKE 1/2 (ONE-HALF) TABLET BY MOUTH AT BEDTIME escitalopram oxalate 10 mg tablet 10 mg PO DAILY meloxicam 15 mg tablet 15 mg PO DAILY Qty: 30 0RF azithromycin [Zithromax] 250 mg tablet 250 mg PO UD DOSE PK Qty: 6 0RF Rx Instructions: Take two (2) tablets today, then one (1) tablet days #2 thru #5 benzonatate [benzonatate] 100 mg capsule 100 mg PO TIDP PRN (Reason: Cough) Qty: 30 0RF methylprednisolone 4 mg Tablets,Dose Pack 4 mg PO DIRECTED 6 Days Qty: 21 0RF Rx Instructions: Take 1 pack as directed for 6 days ondansetron 4 mg Tablet,Disintegrating 4 mg PO Q8H PRN (Reason: Nausea) Qty: 6 0RF Referrals Follow up/Referrals: Teena Grace APRN [Primary Care Provider, Medical] - See instructions Activity Restrictions/Add. Instructions Additional Instructions/Restrictions: Please follow-up with your primary care provider. Please return to the emergency department if you develop any new or worsening symptoms or become concerned for your health. Clinical Impressions Clinical Impression: URI (upper respiratory infection) Qualifiers: URI type: unspecified viral URI Qualified Code(s): J06.9 - Acute upper respiratory infection, unspecified Print Language Print Language: [place] Discharge ED Provider: Joseph Saravia General Adult HPI General Chief complaint: Upper Respiratory Infection Stated complaint: sore throat, sneezing, runny nose Time Seen by Provider: 02/16/25 00:50 Mode of Arrival: Ambulatory Source of Information: Patient Description of Symptoms (Recalled from ER Triage Doc. by RN): sore throat sneezing and runny nose today History of Present Illness HPI narrative: 34-year-old female without significant past medical history, got her flu shot yesterday, has been dealing with some sore throat and runny nose over the last day or so. Denies fever at home. Denies shortness of breath or productive cough. Related Data Home Medications ?Medication ?Instructions ?Recorded ?Confirmed escitalopram oxalate 10 mg tablet 10 mg PO DAILY mood 09/18/22 01/16/23 mirtazapine 15 mg tablet 15 mg PO DAILY . 09/18/22 01/16/23 Previous Rx's ?Medication ?Instructions ?Recorded meloxicam 15 mg tablet 15 mg PO DAILY #30 tabs 01/16/23 azithromycin 250 mg tablet 250 mg PO UD DOSE PK #6 tabs 06/08/23 (Zithromax) benzonatate 100 mg capsule 100 mg PO TIDP PRN Cough #30 caps 06/08/23 methylprednisolone 4 mg tablets in 4 mg PO DIRECTED 6 days #21 tabs 06/08/23 a dose pack ondansetron 4 mg disintegrating 4 mg PO Q8H PRN Nausea #6 tabs 06/08/23 tablet Allergies Allergy/AdvReac Type Severity Reaction Status Date / Time No Known Allergies Allergy Verified 11/27/22 10:25 [facility] Disclaimer: The information contained in this section may have been updated after the patient was seen, as this information can be updated by other users. Medical History No significant past medical history Surgical History History of excision of mass History of partial hysterectomy Family History Other Family history of hyperlipidemia Family history of hypertension Family history of myocardial infarction Social History (Updated 12/16/22 @ 09:04 by Madhavi Solis RN) Smoking Status: Never smoker second hand exposure: No alcohol intake: never substance use type: denies use current occupational status: unemployed Travel in the last 8 weeks?: None household members: spouse and children housing: apartment lives independently: No marital status: education level: high school service: No current occupation: [employer] current occupational exposures/hazards: No caffeine: Yes special zhanna needs: No do you feel safe at home: Yes victim of physical abuse: No victim of emotional abuse: No victim of sexual abuse: No would you like helpful sources: No Have you lived/traveled outside US in past 30 days?: No Contact w/someone who lives/traveled outside US past 30 days?: No Exposure to someone with infectious disease in past 14 days?: No Do you have a fever (greater than 100.4 F or 38 C)?: No Have you tested positive for COVID-19?: No Exposed to someone with COVID-19 in past 14 days?: No Do you have a sore throat?: Yes Do you have a cough?: No Do you have any weakness?: No Do you have any diarrhea?: No Are you experiencing any unusual bleeding?: No Do you have any muscle aches/pain?: No Do you have any abdominal pain?: No Are you experiencing loss of taste or smell?: No Other Medical History Have you received the Flu Vaccine for this season: No Have you received the Pneumonia Vaccine: No ROS Obtained: Yes All systems reviewed & no additional complaints except as documented Physical Exam General General appearance: alert and in no apparent distress Head Head exam: atraumatic and normocephalic Eye Eye exam: Present normal appearance, PERRL and EOMI ENT ENT exam: Present normal external ear exam and other (Mild posterior oropharyngeal erythema without exudate or swelling) Neck Neck exam: Present normal inspection and full ROM Chest Chest inspection: Present normal inspection and symmetric chest wall rise; Absent tenderness Respiratory Respiratory exam: Present normal lung sounds bilaterally; Absent respiratory distress Cardiovascular Cardiovascular exam: Present regular rate and normal rhythm Abdominal Exam Abdominal exam: Present soft; Absent distention, tenderness or guarding Extremities Exam Extremities exam: Present normal inspection; Absent edema or joint swelling Back Exam Back exam: Present normal inspection; Absent tenderness Neurological Exam Neurological exam: Present alert and oriented X3; Absent motor sensory deficit Psychiatric Psychiatric exam: Present normal affect and normal mood Skin Skin exam: Present warm, dry and normal color Lymphatic Lymphatic Findings: no adenopathy Medical Decision Making Medical Records Medical records reviewed: Yes I reviewed the patient's medical records. Screening: Per USPSTF and CDC recommendations, given the prevalence of disease in our region, it is our hospital?s policy to screen for HIV and viral Hepatitis for all patients aged 18 and over and those with ongoing risk factors. Oscar Inquiry Pt receiving controlled substance: No Oscar was queried for this patient: No Vital Signs: 02/16/25 00:52 02/16/25 01:04 Temperature 98.3 F 97.9 F Temperature Source Oral Oral Pulse Rate 68 Pulse Rate [Right Radial] 60 Respiratory Rate 16 16 Blood Pressure 130/81 Blood Pressure [Right Arm] 146/77 H Blood Pressure Mean [Right Arm] 100 Blood Pressure Source Automatic Cuff Blood Pressure Source [Right Arm] Automatic Cuff Blood Pressure Position Sitting Blood Pressure Position [Right Arm] Sitting 02 Sat by Pulse Oximetry 98 Oxygen Delivery Method Room Air Room Air Lab Data Lab results reviewed: Yes I reviewed the patient's lab results. Medical Decision Narrative: 34-year-old female without significant past medical history presents for less than 1 day of sore throat and runny nose. History was obtained via interactive discussion with patient. On arrival, patient is [afebrile, hemodynamically stable, satting appropriately, alert, oriented x4, GCS 15], moving all extremities spontaneously. Full physical exam performed and significant for mild posterior oropharyngeal erythema without swelling or exudate Differential includes but is not limited to symptoms related to recent flu shot, developing viral illness. No evidence of bacterial illness on exam. No indication for further workup at this time. Patient was discharged in stable condition. Procedures Risk/Benefits of Procedure(s) Were Explained: Yes Critical Care Critical Care Time Critical Care Time: No
--- OUTSIDE RECORDS SUMMARY | 2025-02-16 01:01 | XMS_ITS | Data Portability ---
Author Organization [employer] [place] [facility] [place] Address [address] [place] [address] Assessment No assessment recorded. Plan of Treatment Reminders Order Date Submit Date Provider Last Modified By Organization Details Last Modified Time Details Appointments None recorded. Lab cobalamin and folate panel, serum [address] [facility] [address] [place], [address], 08:11:53 lipid panel, serum 2024 025 [place] [address] [place], [address], 08:11:52 CMP, serum or plasma 2024 025 [place] [address] [place], [address], 08:11:52 CBC w/ auto diff 2024 025 [place] [facility] [address] [place], [address], 08:11:51 vitamin D, 25-hydroxy, total, serum 2024 025 [place] [address] [place], [address], 5 08:11:54 TSH, ultra-sensi tive, serum 2024 025 [facility]), [address] [place], [address], 08:11:54 magnesium, serum or plasma 2024 [facility]), [address] [place], [address], 08:11:55 iron + TIBC + ferritin, serum 2024 [facility]), [address] [place], [address], 08:11:51 Hepatitis C IgG Ab, qual, serum 2024 [facility]), [address] [place], [address], 08:11:53 HIV 1 + 2, meaningful use set 2024 [place] [facility] [address] [place], [address], 08:11:55 Referral None recorded. Procedures None recorded. Surgeries None recorded. Imaging None recorded. Medication Orders Ubrelvy [address] [facility], [address], [address], 14:52:42 Patient TargetsNo targets recorded. Patient Instructions Encounter Date Encounter Id Patient Instructions Last Modified By Organization Details Last Modified Time 01/28/2025 [id number] HIV testing: car e instructions [id number] Not available 01/28/2025 15:11:47 Reason for Referral None Reported. Results Created Date Observation Date Name Description Value Unit Range Abnormal Flag Note LastModifiedBy Organization Detail LastModifiedTime 01/29/20 25 01/29/2025 FE+TI BC+FE R iron bind.cap.(TI BC) 268 ug/dL 250-45 0 normal Not Available [facility] ([facility]) [address] [facility], [place], [address], 01/29/2025 08:11:51 01/29/20 25 01/29/2025 FE+TI BC+FE R UIBC 170 ug/dL 131-42 5 normal Not Available [facility] ([facility]) [address] [facility], [place], [address], 01/29/2025 08:11:51 01/29/20 25 01/29/2025 FE+TI BC+FE R iron 98 ug/dL 27-159 normal Not Available [facility] ([facility]) [address] [place], [address], 01/29/2025 08:11:51 01/29/20 25 01/29/2025 FE+TI BC+FE R iron saturation 37 % 15-55 normal Not Available [facility] ([facility]) [address] [place], [address], 01/29/2025 08:11:51 01/29/20 25 01/29/2025 FE+TI BC+FE R ferritin 123 NG/mL 15-150 normal Not Available [facility] ([facility]) [address] [place], [address], 01/29/2025 08:11:51 01/29/2001/29/2025 CBC WITH DIFFE RENTI AL/PL ATELE T WBC 10.4 x10e3 /uL 3.4-10 .8 normal Not Available [facility] ([facility]) [address] [place], [address], 01/29/2025 08:11:51 01/29/20 25 01/29/2025 CBC WITH DIFFE RENTI AL/PL ATELE T RBC 4.38 x10e6 /uL 3.77-5 .28 normal Not Available [facility] ([facility]) [address] [place], [address], 01/29/2025 08:11:51 01/29/20 25 01/29/2025 CBC WITH DIFFE RENTI AL/PL ATELE T hemoglobin 13.5 g/dL 11.1-1 5.9 normal Not Available [facility] ([facility]) [address] [place], [address], 01/29/2025 08:11:51 01/29/20 25 01/29/2025 CBC WITH DIFFE RENTI AL/PL ATELE T hematocrit 41.5 % 34.0-4 6.6 normal Not Available [facility] ([facility]) [address] [place], [address], 01/29/2025 08:11:51 01/29/20 25 01/29/2025 CBC WITH DIFFE RENTI AL/PL ATELE T MCV 95 fL 79-97 normal Not Available [facility] ([facility]) [address] [place], [address], 01/29/2025 08:11:51 01/29/2001/29/2025 CBC WITH DIFFE RENTI AL/PL ATELE T MCH 30.8 pg 26.6-3 3.0 normal Not Available [facility] ([facility]) [address] [place], [address], 01/29/2025 08:11:51 01/29/2001/29/2025 CBC WITH DIFFE RENTI AL/PL ATELE T MCHC 32.5 g/dL 31.5-3 5.7 normal Not Available [facility] ([facility]) [address] [place], [address], 01/29/2025 08:11:51 01/29/20 25 01/29/2025 CBC WITH DIFFE RENTI AL/PL ATELE T RDW 12.6 % 11.7-1 5.4 Not Available [facility] ([facility]) [address] [place], [address], 01/29/2025 08:11:51 01/29/20 25 01/29/2025 CBC WITH DIFFE RENTI AL/PL ATELE T platelets 304 x10e3 /uL 150-45 0 normal Not Available [facility] ([facility]) [address] [facility], [place], [address], 01/29/2025 08:11:51 01/29/2001/29/2025 CBC WITH DIFFE RENTI AL/PL ATELE T neutrophils 58 % not estab. normal Not Available [facility] ([facility]) [address] [facility], [place], [address], 01/29/2025 08:11:51 01/29/2001/29/2025 CBC WITH DIFFE RENTI AL/PL ATELE T lymphs 30 % not estab. normal Not Available [facility] ([facility]) [address] [facility], [place], [address], 01/29/2025 08:11:51 01/29/2001/29/2025 CBC WITH DIFFE RENTI AL/PL ATELE T monocytes 5 % not estab. normal Not Available [facility] ([facility]) [address] [facility], [place], [address], 01/29/2025 08:11:51 01/29/2001/29/2025 CBC WITH DIFFE RENTI AL/PL ATELE T eos 6 % not estab. normal Not Available [facility] ([facility]) [address] [facility], [place], [address], 01/29/2025 08:11:51 01/29/2001/29/2025 CBC WITH DIFFE RENTI AL/PL ATELE T basos 1 % not estab. normal Not Available [facility] ([facility]) [address] 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 0 normal Not Available [facility] ([facility]) [address] [place], [address], 01/29/2025 08:11:51 01/29/20 25 01/29/2025 CBC WITH DIFFE RENTI AL/PL ATELE T lymphs (absolute) 3.1 x10e3 /uL 0.7-3. 1 normal Not Available [facility] ([facility]) [address] [place], [address], 01/29/2025 08:11:51 01/29/20 25 01/29/2025 CBC WITH DIFFE RENTI AL/PL ATELE T monocytes(ab solute) 0.5 x10e3 /uL 0.1-0. 9 normal Not Available [facility] ([facility]) [address] [place], [address], 01/29/2025 08:11:51 01/29/20 25 01/29/2025 CBC WITH DIFFE RENTI AL/PL ATELE T eos (absolute) 0.6 x10e3 /uL 0.0-0. 4 above high normal Not Available [facility] ([facility]) [address] [place], [address], 01/29/2025 08:11:51 01/29/20 25 01/29/2025 CBC WITH DIFFE RENTI AL/PL ATELE T baso (absolute) 0.1 x10e3 /uL 0.0-0. 2 normal Not Available [facility] ([facility]) [address] [place], [address], 01/29/2025 08:11:51 01/29/20 25 01/29/2025 CBC WITH DIFFE RENTI AL/PL ATELE T immature granulocytes 0 % not estab. Not Available [facility] ([facility]) [address] [facility], [place], [address], 01/29/2025 08:11:51 01/29/20 25 01/29/2025 CBC WITH DIFFE RENTI AL/PL ATELE T immature grans (abs) 0.0 x10e3 /uL 0.0-0. 1 Not Available [facility] ([facility]) [address] 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, [place], [address], 01/29/2025 08:11:51 01/29/2001/29/2025 CBC WITH DIFFE RENTI AL/PL ATELE T hematology comments: GOLF COURSE ASSISTANT Not Available [facility] ([facility]) [address] [facility], [place], [address], 01/29/2025 08:11:51 01/29/20 25 01/29/2025 COMP. METAB OLIC PANEL (14) glucose 74 mg/dL 70-99 normal Not Available [facility] ([facility]) [address] [facility], [place], [address], 01/29/2025 08:11:52 01/29/2001/29/2025 COMP. METAB OLIC PANEL (14) BUN 8 mg/dL 6-20 normal Not Available [facility] ([facility]) [address] [facility], [place], [address], 01/29/2025 08:11:52 01/29/20 25 01/29/2025 COMP. METAB OLIC PANEL (14) creatinine 0.75 mg/dL 0.57-1 .00 normal Not Available [facility] ([facility]) [address] [facility], [place], [address], 01/29/2025 08:11:52 01/29/20 25 01/29/2025 COMP. METAB OLIC PANEL (14) eGFR 108 mL/mi n/1.7 3 >59 normal Not Available [facility] ([facility]) [address] [facility], [place], [address], 01/29/2025 08:11:52 01/29/2001/29/2025 COMP. METAB OLIC PANEL (14) BUN/creatini ne ratio 11 9-23 normal Not Available [facility] ([facility]) [address] [facility], [place], [address], 01/29/2025 08:11:52 01/29/20 25 01/29/2025 COMP. METAB OLIC PANEL (14) sodium 138 mmol/ L 134-14 4 normal Not Available [facility] ([facility]) [address] [place], [address], 01/29/2025 08:11:52 01/29/20 25 01/29/2025 COMP. METAB OLIC PANEL (14) potassium 4.1 mmol/ L 3.5-5. 2 normal Not Available [facility] ([facility]) [address] [place], [address], 01/29/2025 08:11:52 01/29/20 25 01/29/2025 COMP. METAB OLIC PANEL (14) chloride 104 mmol/ L 96-106 normal Not Available [facility] ([facility]) [address] [place], [address], 01/29/2025 08:11:52 01/29/20 25 01/29/2025 COMP. METAB OLIC PANEL (14) carbon dioxide, total 23 mmol/ L 20-29 normal Not Available [facility] ([facility]) [address] [place], [address], 01/29/2025 08:11:52 01/29/20 25 01/29/2025 COMP. METAB OLIC PANEL (14) calcium 9.2 mg/dL 8.7-10 .2 normal Not Available [facility] ([facility]) [address] [place], [address], 01/29/2025 08:11:52 01/29/2001/29/2025 COMP. METAB OLIC PANEL (14) protein, total 6.5 g/dL 6.0-8. 5 normal Not Available [facility] ([facility]) [address] [place], [address], 01/29/2025 08:11:52 01/29/20 25 01/29/2025 COMP. METAB OLIC PANEL (14) albumin 4.4 g/dL 3.9-4. 9 normal Not Available [facility] ([facility]) [address] [place], [address], 01/29/2025 08:11:52 01/29/20 25 01/29/2025 COMP. METAB OLIC PANEL (14) globulin, total 2.1 g/dL 1.5-4. 5 Not Available [facility] ([facility]) [address] [place], [address], 01/29/2025 08:11:52 01/29/2001/29/2025 COMP. METAB OLIC PANEL (14) bilirubin, total 0.6 mg/dL 0.0-1. 2 normal Not Available [facility] ([facility]) [address] [place], [address], 01/29/2025 08:11:52 01/29/20 25 01/29/2025 COMP. METAB OLIC PANEL (14) alkaline phosphatase 63 IU/L 41-116 normal Not Available [facility] ([facility]) [address] [place], [address], 01/29/2025 08:11:52 01/29/2001/29/2025 COMP. METAB OLIC PANEL (14) AST (SGOT) 12 IU/L 0-40 normal Not Available [facility] ([facility]) [address] [place], [address], 01/29/2025 08:11:52 01/29/20 25 01/29/2025 COMP. METAB OLIC PANEL (14) ALT (SGPT) 6 IU/L 0-32 normal Not Available [facility] ([facility]) [address] [place], [address], 01/29/2025 08:11:52 01/29/20 25 01/29/2025 LIPID PANEL cholesterol, total 161 mg/dL 100-19 9 normal Not Available [facility] ([facility]) [address] [place], [address], 01/29/2025 08:11:52 01/29/20 25 01/29/2025 LIPID PANEL triglyceride s 190 mg/dL 0-149 above high normal Not Available [facility] ([facility]) [address] [place], [address], 01/29/2025 08:11:52 01/29/20 25 01/29/2025 LIPID PANEL HDL cholesterol 31 mg/dL >39 below low normal Not Available [facility] ([facility]) [address] [place], [address], 01/29/2025 08:11:52 01/29/2001/29/2025 LIPID PANEL VLDL cholesterol kian 33 mg/dL 5-40 Not Available [facility] ([facility]) [address] [place], [address], 01/29/2025 08:11:52 01/29/20 25 01/29/2025 LIPID PANEL LDL chol calc (nih) 97 mg/dL 0-99 Not Available [facility] ([facility]) [address] 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, [place], [address], 01/29/2025 08:11:52 01/29/2001/29/2025 VITAM IN B12 AND FOLAT E vitamin B12 397 pg/mL 232-12 45 normal Not Available [facility] ([facility]) [address] [facility], [place], [address], 01/29/2025 08:11:53 01/29/2001/29/2025 VITAM IN B12 AND FOLAT E folate (folic acid), serum 4.0 NG/mL >3.0 normal A serum folat e cari ntrat ion of less than 3.1 ng/mL is consi dered to repre sent clini kian defic iency . Not Available [facility] ([facility]) [address] [facility], [place], [address], 01/29/2025 08:11:53 01/29/2001/29/2025 HCV ANTIB POLO CASCA DE(PC R/GEN O) HCV Ab Non Reacti ve non reacti ve Not Available [facility] ([facility]) [address] [facility], [place], [address], 01/29/2025 08:11:53 01/29/2001/29/2025 HCV ANTIB POLO CASCA DE(PC R/GEN O) interpretati on: Commen t Not infec sergey with HCV unles s early or acute infec tion is suspe cted (whic h may be delay ed in an immun ocomp romis ed indiv idual ), or other evide nce exist s to indic ate HCV infec tion. Not Available [facility] ([facility]) [address] [facility], [place], [address], 01/29/2025 08:11:53 01/29/2001/29/2025 TSH TSH 2.170 uIU/m L 0.450- 4.500 normal Not Available [facility] ([facility]) [address] [facility], [place], [address], 01/29/2025 08:11:54 01/29/2001/29/2025 VITAM IN D, 25-HY DROXY vitamin D, 25-hydroxy 9.7 NG/mL 30.0-1 00.0 below low normal Vitam in D defic iency has been defin ed by the Insti tute of [facility] and an Endoc rine Socie ty pract ice guide line as a level of serum 25-OH vitam in D less than 20 ng/mL (1,2) . The Endoc rine Socie ty went on to furth er defin e vitam in D insuf ficie ncy as a level betwe en 21 and 29 ng/mL (2). 1. IOM (Inst it[facility]). 2009. Dieta ry refer ence jeremiah es for calci um and D. Chela wilson [place]: [facility] . 2. Madalyn beaulieu [place], Kary ey [place], Daniella off-F errar i MITCHELL, et al. Evalu ation , treat ment, and preve ntion of vitam in D defic iency : an Endoc rine Socie ty clini kian pract ice guide line. JCEM. 2010; 96(7) :1911 -30. Not Available [facility] ([facility]) [address] [facility], [place], [address], 01/29/2025 08:11:54 01/29/2001/29/2025 HIV AB/P2 4 AG WITH REFLE X HIV Ab/P24 Ag screen Non Reacti ve non reacti ve HIV-1 /HIV- 2 antib odies and HIV-1 p24 antig en were NOT detec sergey. There is no labor atory evide nce of HIV infec tion. HIV Negat sharmaine Not Available [facility] ([facility]) [address] [facility], [place], [address], 01/29/2025 08:11:55 01/29/2001/29/2025 MAGNE SIUM magnesium 1.9 mg/dL 1.6-2. 3 normal Not Available [facility] ([facility]) [address] [facility], [place], [address], 01/29/2025 08:11:55 Result Notes None recorded. Problems Name Problem SNOMED Code Status Onset Date Resolution Date Notes Provider Name and Address Organization Details Recorded Time Migraine 02251124 Active [address] [place] [address], [address] [place] [address] 8, [employer] 14:51:16 Vertigo 046624782 Active [address] [place] [address], [address] [place] [address] 8, [employer] 14:52:40 Vitamin D deficiency 15680585 Active [address] [place] [address], [address] [place] [address] 8, [employer] 16:31:44 Problem Notes None recorded. Procedures Surgical History Date Name Laterality Status Provider Name and Address Organization Details Recorded Time Partial Hysterectomy completed [employer] 01/28/2025 14:28:00 operative procedure on foot completed [employer] 01/28/2025 14:28:16 surgical procedure on lower extremity completed [employer] 01/28/2025 14:28:26 Imaging Results None recorded. Procedure Notes None recorded. Medical Equipment None Reported. Allergies No known drug allergies Medications Name Sig Start Date Stop Date Status Note LastModified by Organization Details LastModified Time ergocalciferol (vitamin D2) 1,250 mcg (50,000 unit) capsule TAKE 1 CAPSULE BY MOUTH ONCE A WEEK active Not Available Not Available No t Available cholecalcifero l (vitamin D3) 50 mcg (2,000 unit) tablet TAKE 1 TABLET BY MOUTH ONCE DAILY active Not Available Not Available No t Available Ubrelvy 100 mg tablet TAKE ONE TABLET BY MOUTH AT ONSET OF MIGRAINE NEEDED. IF SYMPTOMS PERSIST, A SECOND DOSE MAY BE TAKEN IN 2 HOURS. DO NOT EXCEED 2 DOSES IN A 24 HOUR PERIOD active Not Available Not Available No t Available Vitals Date Recorded Body weight Body mass index (BMI) Body height Body temperature Heart rate Oxygen saturation Oxygen saturation in Arterial blood by Pulse oximetry Systolic And Diastolic Provider Name and Address Organization Details Last Updated DateTime 16401.8 2 g 19.6 kg/m2 157.48 cm 98.1 [degF] 62 /min 97 % 97 % 112/74 mm[Hg] [employer] 14:31:33 Social History Question Answer Notes LastModified by Organizat ion Details LastModified Time Tobacco Smoking Status Current Every Day Smoker [employer] 01/28/2025 14:24:52 Do You Have An Advance Directive? No Information n ot available 01/28/2025 Is Your Home Air Conditioned? Yes Information not available 01/28/2025 If You Are , What Was Your Level Of Alcohol Consumption Prior To ? None Information not available 01/28/2025 What Is Your Level Of Caffeine Consumption? Heavy Information not available 01/28/2025 Are You A Caregiver? No Information not available 01/28/2025 What Type Of Diet Are You Following? REGULAR Information n ot available 01/28/2025 What Is The Highest Grade Or Level Of School You Have Completed Or The Highest Degree You Have Received? [id number] Information not available 01/28/2025 How Many Days Of Moderate To Strenuous Exercise, Like A Brisk Walk, Did You Do In The Last 7 Days? 5 Information not available 01/28/2025 On Those Days That You Engage In Moderate To Strenuous Exercise, How Many Minutes, On Average, Do You Exercise? 8 Information not available 01/28/2025 Have There Been Any Changes To Your Family Or Social Situation? No Information no t available 01/28/2025 Are There Any Guns Present In Your Home? No Information not available 01/28/2025 Which Of Your Hands Is Dominant? Left Information n ot available 01/28/2025 Do You Engage In Moderate/heavy Exercise (e.g. Brisk Walk, Jogging, Strength Training, Etc)? Yes Information not available 01/28/2025 Where Do You Live? Trailer Inform ation not available 01/28/2025 Do You Have A Medical Power Of Table Attendant? No Information not available 01/28/2025 What Was The Date Of Your Most Recent Tobacco Screening? 01/28/2025 Information not available 01/28/2025 Are There Any Occupational Health Risks Where You Work? No Information not available 01/28/2025 What Is Your Current Pack Years? [id number] rs Information not available 01/28/2025 Do You Have Any Pets? Yes Information not available 01/28/2025 What Is Your Relationship Status? Information not available 01/28/2025 Do You Wear A Seatbelt When Driving Or As A Passenger? Yes Information not available 01/28/2025 Do You Use Your Seat Belt Or Car Seat Routinely? Yes Information not available 01/28/2025 Are You Sexually Active? Yes Information not available 01/28/2025 Do You Have Smoke And Carbon Monoxide Detectors In Your Home? Yes Information not available 01/28/2025 At What Age Did You Start Smoking Tobacco? 14 Information not available 01/28/2025 Are You Passively Exposed To Smoke? Yes Information no t available 01/28/2025 Are There Any Smokers In Your House? Yes Information not available 01/28/2025 How Much Tobacco Do You Smoke? 1 PPD Information not available 01/28/2025 What Types Of Sporting Activities Do You Participate In? Na Information not available 01/28/2025 Has Tobacco Cessation Counseling Been Provided? Yes Information not available 01/28/2025 On What Date Was Tobacco Cessation Counseling Provided? 01/28/2025 Information not available 01/28/2025 How Many Years Have You Smoked Tobacco? 10 Information not available 01/28/2025 Have You Recently Traveled Abroad? No Information not available 01/28/2025 What Contraceptive Method Was Reported At Start Of This Visit? None Information not available 01/28/2025 Do You Feel Safe In Your Home? Yes Information not available 01/28/2025 Do You Have Any Dietary Restrictions? No Information not available 01/28/2025 What Is Your Reason For Having No Contraceptive Method At Start Of This Visit? Other Information not available 01/28/2025 Sex: Unknown Functional Status Question Answer Note LastModified by Organizat ion Details LastModified Time Do you use any illicit or recreational drugs? No Information not available 01/28/2025 Do you feel safe in your relationship? Yes Information n ot available 01/28/2025 Do you or have you ever used any other forms of tobacco or nicotine? No Information not available 01/28/2025 What is your level of alcohol consumption? None Information not available 01/28/2025 Are you currently employed? Yes Information not available 01/28/2025 Do you have transportation difficulties? No Information not available 01/28/2025 Are you able to care for yourself independently? Yes Information not available 01/28/2025 Mental Status Question Answer Note LastModified by Organization D etails LastModified Time Do you feel stressed (tense, restless, nervous, or anxious, or unable to sleep at night)? [id number] Information not available 01/28/2025 Family History Relationship Description Onset Age of this Age Resolved Age Notes LastModified by Organization Details LastModified Time Father Hypertensive disorder Not available 2024 14:27:33 Medical History Condition Response Coronary Artery Disease N Other N Gout N Kidney Stones N Blood Diseases N Hyperthyroidism N Blood Transfusion N Breast Cancer N Emergency room visit since last appointm ent. N COPD N Depression N Dermatologic Disorders N Lung Disease N Hypothyroidism N Developmental or Behavioral Disorders N Defects or Inherited Disease N Breast Problem N Difficulty Swallowing N Anesthesia Complications N History of STI N Anxiety Disorder N Meniere's disease N Autoimmune disease N Muscle, Joint, or Bone Problems N Vision or Eye Problems N Arthritis N Infertility N Polyps N Mental Disorder N Congenital Anomalies N Acid Reflux (GERD) N Cancer N Stroke N Neurologic/Epilepsy N Endometriosis N Bladder or Kidney Problems N High Cholesterol N Liver Disease N Psychiatric/Mental Health Condition N Organ Transplant N Fibromyalgia N Headaches Y Schizophrenia N Dialysis N Kidney Disease N Allergies/Hayfever N Heart Problems N Ear or Hearing Problems N Hospitalizations N Learning Disorder N Artificial Joints N Thyroid Problems N GI Problems N Acne N ADD/ADHD N Eating Disorder N Anemia N Constipation N Mental Illness N Ovarian Cancer N Diabetes N Bedwetting N Hepatitis/Liver Disease N Tuberculosis N Eczema N Diverticulitis N Abuse/Domestic Violence N Asthma N Trauma/Violence N Substance Abuse N Amnesia/Cognitive Decline N Reflux/GERD N Depression/ depression N Hepatitis N Heart Disease N Pulmonary Embolism N Tourette Syndrome N Chronic Ear Infections N Pre-Eclampsia N Hypertension N Chicken Pox N Autism Spectrum Disorder (ASD) N Osteoporosis N Thrombophilias N Gynecological History Statement/Question Response Menses Monthly N Date of Last Pap Smear Current Control Method Hysterectom y Most Recent Mammogram Obstetrics History GPAL:G 4 P 3 0 1 3 Type Value Multiple Births 0 Full Term 3 Induced 0 Spontaneous 1 Premature 0 Living 3 Ectopics 0 Total 4 Immunizations Vaccine Type Date Status Note Provider Nam e and Address Organization Details Recorded Time Influenza, split virus, trivalent, preservative 8 completed Not Available [facility] 01/28/2025 14:22:14 meningococcal MPSV4 9 completed Not Available [facility] 01/28/2025 14:22:14 Tdap 5 completed Not Available [facility] 01/28/2025 14:22:14 Past Encounters Encounter ID Performer Location Encounter Start Date Encounter Closed Date Diagnosis/Indication Diagnosis SNOMED-CT Code Diagnosis ICD10 Code Diagnosis IMO Codes Diagnosis Note [id number] ABRIL Vincent [facility] [address] [place] [address] 01/28/2025 14:20:34 01/28/2025 15:01:47 Migraine 06053181 G43.909 78988 History of nutritional disorder 598727852 Z86.39 0313549 History of anemia - iron deficient 799120363 Z86.2 252588 Vertigo 274080774 R42 94578 HIV screening 830083463 Z11.4 755036 Viral scre ening status 919482144 Z11.59 844667 Health Concerns Section Related Observation LastModified by Organization Detai ls LastModified Time None Recorded Concern Status LastModified by Organization Details LastModified Time None Recorded Advance Directives Directive N: Payers Insurance Date Sequence Insurance Name Policy Number Policy Schafer Covered Member ID Schafer Member ID Guarantor Name 02/07/2025 1 [employer] [facility] (MEDICAID HMO) Stacey Jean [id number] Stacey Jean Notes Date Note Type Note Provider Name and Address Organization Details Recorded Time 01/28/2025 text/html ROS as noted in the HPI Patient presents to establish care. History of migraines. Recently had migraine that lasted 4 days. Nothing really takes them away. She can sometimes go to sleep in a dark room. She has also been having episodes of dizziness. Has a history of anemia and B12 deficiency. States she eats pretty well. Drinks mostly Mountain Dew - not much water. ABRIL Vincent [address] [place] [address], [phone], [facility] [employer] 01/28/2025 15:10:38 OBGyn Episode No OBEpisode recorded.
--- OUTSIDE RECORDS SUMMARY | 2025-02-16 01:01 | XMS_ITS | Clinical Summary ---
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 Role Phone Venkata Baker MD Primary Care Provider [phone] Allergies No known active allergies Social History [...] [facility]-HIV Screening 1991 [facility]-Hepatitis C Screening 1991 [facility]-Infant/Child/Adol SDOH Screenings 1991 [facility]-Varicella Vaccines (1 of 2 - 13+ 2-dose series) 07/04/2004 [facility]- SDOH Screenings 07/04/2009 [facility]-Adult SDOH Screenings 07/04/2009 [facility]-Hepatitis B Vaccines (1 of 3 - 19+ 3-dose series) 07/04/2010 [facility]-Pap Smear 07/04/2012 HPV Vaccines (1 - 3-dose SCD M series) 07/04/2018 [facility]-Cervical Cancer Screening 07/04/2021 [facility]-HPV/Cotest 07/04/2021 [id number] Vaccine (1 - 20 24- season) 2024 [...] to complete this topic Insurance [place] [id number] [employer] Care Teams 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
--- OUTSIDE RECORDS SUMMARY | 2025-02-16 01:01 | XMS_ITS | Continuity of Care Document ---
Author Organization [place] [facility] [employer] Address [address] [place] [address] Assessment No assessment recorded. Plan of Treatment Reminders Order Date Submit Date Provider Last Modified By Organization Details Last Modified Time Details Appointments None recorded. Lab cobalamin and folate panel, serum 2024 025 [facility] [address] [place], [address], 08:11:53 lipid panel, serum 2024 025 [facility] [address] [place], [address], 08:11:52 CMP, serum or plasma 2024 025 [facility] [address] [place], [address], 08:11:52 CBC w/ auto diff 2024 025 [facility] [address] [place], [address], 5 08:11:51 vitamin D, 25-hydroxy, total, serum 2024 025 [facility] [address] [place], [address], 5 08:11:54 TSH, ultra-sensi tive, serum 2024 025 [facility]), [address] [place], [address], 08:11:54 magnesium, serum or plasma 2024 025 [facility]), [address] [place], [address], 08:11:55 iron + TIBC + ferritin, serum 2024 025 [facility] ([place]), [address] [place], [address], 08:11:51 Hepatitis C IgG Ab, qual, serum 2024 025 [facility]), [address] [place], [address], 08:11:53 HIV 1 + 2, meaningful use set 2024 025 [facility]), [address] [place], [address], 08:11:55 Referral None recorded. Procedures None recorded. Surgeries None recorded. Imaging None recorded. Medication Orders Ubrelvy 100 mg tablet 2024 025 [email or web address] [facility], [address], [address], 14:52:42 Patient TargetsNo targets recorded. Patient Instructions Encounter Date Encounter Id Patient Instructions Last Modified By Organization Details Last Modified Time 01/28/2025 [id number] HIV testing: car e instructions [email or web address] Not available 01/28/2025 15:11:47 Reason for Referral None Reported. Results Created Date Observation Date Name Description Value Unit Range Abnormal Flag Note LastModifiedBy Organization Detail LastModifiedTime 01/29/20 25 01/29/2025 FE+TI BC+FE R iron bind.cap.(TI BC) 268 ug/dL 250-45 0 normal Not Available [facility] ([facility]) [address] [place], [address], 01/29/2025 08:11:51 01/29/20 25 01/29/2025 FE+TI BC+FE R UIBC 170 ug/dL 131-42 5 normal Not Available [facility] ([facility]) [address] [place], [address], 01/29/2025 08:11:51 01/29/20 25 01/29/2025 FE+TI BC+FE R iron 98 ug/dL 27-159 normal Not Available [facility] ([facility]) [address] [place], [address], 01/29/2025 08:11:51 01/29/20 25 01/29/2025 FE+TI BC+FE R iron saturation 37 % 15-55 normal Not Available [facility] ([facility]) [address] [place], [address], 01/29/2025 08:11:51 01/29/2001/29/2025 FE+TI BC+FE R ferritin 123 NG/mL 15-150 normal Not Available [facility] ([facility]) [address] [place], [address], 01/29/2025 08:11:51 01/29/2001/29/2025 CBC WITH DIFFE RENTI AL/PL ATELE T WBC 10.4 x10e3 /uL 3.4-10 .8 normal Not Available [facility] ([facility]) [address] [place], [address], 01/29/2025 08:11:51 01/29/20 25 01/29/2025 CBC WITH DIFFE RENTI AL/PL ATELE T RBC 4.38 x10e6 /uL 3.77-5 .28 normal Not Available [facility] ([facility]) [address] [place], [address], 01/29/2025 08:11:51 01/29/20 25 01/29/2025 CBC WITH DIFFE RENTI AL/PL ATELE T hemoglobin 13.5 g/dL 11.1-1 5.9 normal Not Available [facility] ([facility]) [address] [place], [address], 01/29/2025 08:11:51 01/29/2001/29/2025 CBC WITH DIFFE RENTI AL/PL ATELE T hematocrit 41.5 % 34.0-4 6.6 normal Not Available [facility] ([facility]) [address] [place], [address], 01/29/2025 08:11:51 01/29/20 25 01/29/2025 CBC WITH DIFFE RENTI AL/PL ATELE T MCV 95 fL 79-97 normal Not Available [facility] ([facility]) [address] [place], [address], 01/29/2025 08:11:51 01/29/2001/29/2025 CBC WITH DIFFE RENTI AL/PL ATELE T MCH 30.8 pg 26.6-3 3.0 normal Not Available [facility] ([facility]) [address] [place], [address], 01/29/2025 08:11:51 01/29/2001/29/2025 CBC WITH DIFFE RENTI AL/PL ATELE T MCHC 32.5 g/dL 31.5-3 5.7 normal Not Available [facility] ([facility]) [address] [place], [address], 01/29/2025 08:11:51 01/29/20 25 01/29/2025 CBC WITH DIFFE RENTI AL/PL ATELE T RDW 12.6 % 11.7-1 5.4 Not Available [facility] ([facility]) [address] [place], [address], 01/29/2025 08:11:51 01/29/2001/29/2025 CBC WITH DIFFE RENTI AL/PL ATELE T platelets 304 x10e3 /uL 150-45 0 normal Not Available [facility] ([facility]) [address] [facility], [place], [address], 01/29/2025 08:11:51 01/29/2001/29/2025 CBC WITH DIFFE RENTI AL/PL ATELE T neutrophils 58 % not estab. normal Not Available [facility] ([facility]) [address] [facility], [place], [address], 01/29/2025 08:11:51 01/29/2001/29/2025 CBC WITH DIFFE RENTI AL/PL ATELE T lymphs 30 % not estab. normal Not Available [facility] ([facility]) [address] [facility], [place], [address], 01/29/2025 08:11:51 01/29/20 25 01/29/2025 CBC WITH DIFFE RENTI AL/PL ATELE T monocytes 5 % not estab. normal Not Available [facility] ([facility]) [address] [facility], [place], [address], 01/29/2025 08:11:51 01/29/2001/29/2025 CBC WITH DIFFE RENTI AL/PL ATELE T eos 6 % not estab. normal Not Available [facility] ([facility]) [address] [facility], [place], [address], 01/29/2025 08:11:51 01/29/2001/29/2025 CBC WITH DIFFE RENTI AL/PL ATELE T basos 1 % not estab. 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 0 normal Not Available [facility] ([facility]) [address] [place], [address], 01/29/2025 08:11:51 01/29/20 25 01/29/2025 CBC WITH DIFFE RENTI AL/PL ATELE T lymphs (absolute) 3.1 x10e3 /uL 0.7-3. 1 normal Not Available [facility] ([facility]) [address] [place], [address], 01/29/2025 08:11:51 01/29/20 25 01/29/2025 CBC WITH DIFFE RENTI AL/PL ATELE T monocytes(ab solute) 0.5 x10e3 /uL 0.1-0. 9 normal Not Available [facility] ([facility]) [address] [place], [address], 01/29/2025 08:11:51 01/29/20 25 01/29/2025 CBC WITH DIFFE RENTI AL/PL ATELE T eos (absolute) 0.6 x10e3 /uL 0.0-0. 4 above high normal Not Available [facility] ([facility]) [address] [place], [address], 01/29/2025 08:11:51 01/29/20 25 01/29/2025 CBC WITH DIFFE RENTI AL/PL ATELE T baso (absolute) 0.1 x10e3 /uL 0.0-0. 2 normal Not Available [facility] ([facility]) [address] [place], [address], 01/29/2025 08:11:51 01/29/20 25 01/29/2025 CBC WITH DIFFE RENTI AL/PL ATELE T immature granulocytes 0 % not estab. Not Available [facility] ([facility]) [address] [facility], [place], [address], 01/29/2025 08:11:51 01/29/20 25 01/29/2025 CBC WITH DIFFE RENTI AL/PL ATELE T immature grans (abs) 0.0 x10e3 /uL 0.0-0. 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 METAB OLIC PANEL (14) glucose 74 mg/dL 70-99 normal Not Available [facility] ([facility]) [address] [facility], [place], [address], 01/29/2025 08:11:52 01/29/20 25 01/29/2025 COMP. METAB OLIC PANEL (14) BUN 8 mg/dL 6-20 normal Not Available [facility] ([facility]) [address] [facility], [place], [address], 01/29/2025 08:11:52 01/29/20 25 01/29/2025 COMP. METAB OLIC PANEL (14) creatinine 0.75 mg/dL 0.57-1 .00 normal Not Available [facility] ([facility]) [address] [place], [address], 01/29/2025 08:11:52 01/29/20 25 01/29/2025 COMP. METAB OLIC PANEL (14) eGFR 108 mL/mi n/1.7 3 >59 normal Not Available [facility] ([facility]) [address] [facility], [place], [address], 01/29/2025 08:11:52 01/29/20 25 01/29/2025 COMP. METAB OLIC PANEL (14) BUN/creatini ne ratio 11 9-23 normal Not Available [facility] ([facility]) [address] [facility], [place], [address], 01/29/2025 08:11:52 01/29/20 25 01/29/2025 COMP. METAB OLIC PANEL (14) sodium 138 mmol/ L 134-14 4 normal Not Available [facility] ([facility]) [address] [place], [address], 01/29/2025 08:11:52 01/29/20 25 01/29/2025 COMP. METAB OLIC PANEL (14) potassium 4.1 mmol/ L 3.5-5. 2 normal Not Available [facility] ([facility]) [address] [facility], [place], [address], 01/29/2025 08:11:52 01/29/20 25 01/29/2025 COMP. METAB OLIC PANEL (14) chloride 104 mmol/ L 96-106 normal Not Available [facility] ([facility]) [address] [place], [address], 01/29/2025 08:11:52 01/29/20 25 01/29/2025 COMP. METAB OLIC PANEL (14) carbon dioxide, total 23 mmol/ L 20-29 normal Not Available [facility] ([facility]) [address] [facility], [place], [address], 01/29/2025 08:11:52 01/29/20 25 01/29/2025 COMP. METAB OLIC PANEL (14) calcium 9.2 mg/dL 8.7-10 .2 normal Not Available [facility] ([facility]) [address] [facility], [place], [address], 01/29/2025 08:11:52 01/29/20 25 01/29/2025 COMP. METAB OLIC PANEL (14) protein, total 6.5 g/dL 6.0-8. 5 normal Not Available [facility] ([facility]) [address] [facility], [place], [address], 01/29/2025 08:11:52 01/29/20 25 01/29/2025 COMP. METAB OLIC PANEL (14) albumin 4.4 g/dL 3.9-4. 9 normal Not Available [facility] ([facility]) [address] [facility] [place], [address], 01/29/2025 08:11:52 01/29/20 25 01/29/2025 COMP. METAB OLIC PANEL (14) globulin, total 2.1 g/dL 1.5-4. 5 Not Available [facility] ([facility]) [address] [facility] [place], [address], 01/29/2025 08:11:52 01/29/20 25 01/29/2025 COMP. METAB OLIC PANEL (14) bilirubin, total 0.6 mg/dL 0.0-1. 2 normal Not Available [facility] ([facility]) [address] [facility] [place], [address], 01/29/2025 08:11:52 01/29/20 25 01/29/2025 COMP. METAB OLIC PANEL (14) alkaline phosphatase 63 IU/L 41-116 normal Not Available [facility] ([facility]) [address] [facility], [place], [address], 01/29/2025 08:11:52 01/29/2001/29/2025 COMP. METAB OLIC PANEL (14) AST (SGOT) 12 IU/L 0-40 normal Not Available [facility] ([facility]) [address] [facility] [place], [address], 01/29/2025 08:11:52 01/29/20 25 01/29/2025 COMP. METAB OLIC PANEL (14) ALT (SGPT) 6 IU/L 0-32 normal Not Available [facility] ([facility]) [address] [facility] [place], [address], 01/29/2025 08:11:52 01/29/20 25 01/29/2025 LIPID PANEL cholesterol, total 161 mg/dL 100-19 9 normal Not Available [facility] ([facility]) [address] [place], [address], 01/29/2025 08:11:52 01/29/20 25 01/29/2025 LIPID PANEL triglyceride s 190 mg/dL 0-149 above high normal Not Available [facility] ([facility]) [address] [place], [address], 01/29/2025 08:11:52 01/29/20 25 01/29/2025 LIPID PANEL HDL cholesterol 31 mg/dL >39 below low normal Not Available [facility] ([facility]) [address] [place], [address], 01/29/2025 08:11:52 01/29/20 25 01/29/2025 LIPID PANEL VLDL cholesterol kian 33 mg/dL 5-40 Not Available [facility] ([facility]) [address] [place], [address], 01/29/2025 08:11:52 01/29/20 25 01/29/2025 LIPID PANEL LDL chol calc ([facility]) 97 mg/dL 0-99 Not Available [facility] ([facility]) [address] [facility], [place], [address], 01/29/2025 08:11:52 01/29/2001/29/2025 LIPID PANEL LDL calc 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 Not Available [facility] ([facility]) [address] [facility], [place], [address], 01/29/2025 08:11:53 01/29/2001/29/2025 HCV ANTIB POLO CASCA DE(PC R/GEN O) HCV Ab Non Reacti ve non reacti ve Not Available [facility] ([facility]) [address] [facility], [place], [address], 01/29/2025 08:11:53 01/29/2001/29/2025 HCV ANTIB POLO CASCA DE(PC R/GEN O) interpretati on: Commen t Not infec sergey with HCV unles s early or acute infec tion is suspe cted (whic h may be delay ed in an immun ocomp romis ed indiv idual ), or other evide nce exist s to indic ate HCV infec tion. Not Available [facility] ([facility]) [address] [facility], [place], [address], 01/29/2025 08:11:53 01/29/2001/29/2025 TSH TSH 2.170 uIU/m L 0.450- 4.500 normal Not Available [facility] ([facility]) [address] [facility], [place], [address], 01/29/2025 08:11:54 01/29/2001/29/2025 VITAM IN D, 25-HY DROXY vitamin D, 25-hydroxy 9.7 NG/mL 30.0-1 00.0 below low normal Vitam in D defic iency has been defin ed by the Insti tute of [facility] [employer] and an Endoc rine Socie ty pract ice guide line as a level of serum 25-OH vitam in D less than 20 ng/mL (1,2) . The Endoc rine Socie ty went on to furth er defin e vitam in D insuf ficie ncy as a level betwe en 21 and 29 ng/mL (2). 1. IOM ([facility] [employer] [facility]). 2009. Laurie ry refer ence jeremiah es for calci um and D. Chela wilson [place]: [facility] . 2. Madalyn beaulieu [place], Kary parikh [place], Daniella off-F errar i MITCHELL, et al. Evalu ation , treat ment, and preve ntion of vitam in D defic iency : an Endoc rine Socie ty clini kian pract ice guide line. JCEM. 2010; 96(7) :1911 -30. Not Available [facility] ([facility]) [address] [facility], [place], [address], 01/29/2025 08:11:54 01/29/2001/29/2025 HIV AB/P2 4 AG WITH REFLE X HIV Ab/P24 Ag screen Non Reacti ve non reacti ve HIV-1 /HIV- 2 antib odies and HIV-1 p24 antig en were NOT detec sergey. There is no labor atory evide nce of HIV infec tion. HIV Negat sharmaine Not Available [facility] ([facility]) [address] [facility], [place], [address], 01/29/2025 08:11:55 01/29/2001/29/2025 MAGNE SIUM magnesium 1.9 mg/dL 1.6-2. 3 normal Not Available [facility] ([facility]) [address] [facility], [place], [address], 01/29/2025 08:11:55 Result Notes None recorded. Problems Name Problem SNOMED Code Status Onset Date Resolution Date Notes Provider Name and Address Organization Details Recorded Time Migraine 89278130 Active [address] [place] [address], [phone], [employer] 14:51:16 Vertigo 860882555 Active [address] [place] [address], [address], [employer] 14:52:40 Vitamin D deficiency 45974740 Active [address], [phone], [employer] 16:31:44 Problem Notes None recorded. Procedures Surgical History Date Name Laterality Status Provider Name and Address Organization Details Recorded Time Partial Hysterectomy completed [employer] 01/28/2025 14:28:00 operative procedure on foot completed [employer] 01/28/2025 14:28:16 surgical procedure on lower extremity completed [employer] 01/28/2025 14:28:26 Imaging Results None recorded. Procedure [...] and Address Organization Details Last Updated DateTime 56743.8 2 g 19.6 kg/m2 157.48 cm 98.1 [degF] 62 /min 97 % 97 % 112/74 mm[Hg] [employer] 14:31:33 Social History Question Answer Notes LastModified by Organizat ion Details LastModified Time Tobacco Smoking Status Current Every Day Smoker [employer] 01/28/2025 14:24:52 Do You Have An Advance [...] Or The Highest Degree You Have Received? [id number] Information not available 01/28/2025 How Many Days [...] Do You Have A Medical Power Of Line Mechanic? No Information not available 01/28/2025 What Was [...] anxious, or unable to sleep at night)? [id number] Information not available 01/28/2025 Family History Relationship [...] COPD N Depression N Dermatologic Disorders N Hypothyroidism N Lung Disease N Developmental or Behavioral Disorders N Defects or Inherited Disease N Breast Problem N Difficulty Swallowing N Anesthesia Complications N History of STI N Meniere's disease N Anxiety Disorder N Muscle, Joint, or Bone Problems N Autoimmune disease N Vision or Eye Problems N Arthritis N Polyps N Infertility N Mental Disorder N Congenital Anomalies N Acid Reflux (GERD) N Cancer N Stroke N Neurologic/Epilepsy N Endometriosis N Bladder or Kidney Problems N High Cholesterol N Liver Disease N Organ Transplant N Psychiatric/Mental Health Condition N Fibromyalgia N Dialysis N Schizophrenia N Headaches Y Kidney Disease N Allergies/Hayfever N Heart Problems [...] virus, trivalent, preservative 8 completed [facility] Available [facility] 01/28/2025 14:22:14 meningococcal MPSV4 9 completed Not Available [facility] 01/28/2025 14:22:14 Tdap 5 completed Not Available [facility] 01/28/2025 14:22:14 Past Encounters Encounter ID Performer Location Encounter Start Date Encounter Closed Date Diagnosis/Indication Diagnosis SNOMED-CT Code Diagnosis ICD10 Code Diagnosis IMO Codes Diagnosis Note [id number] ABRIL Vincent [facility] [address] [place] [address] 01/28/2025 14:20:34 01/28/2025 15:01:47 Migraine 75026894 G43.909 23237 History of nutritional disorder 463252611 Z86.39 2560696 History of anemia - iron deficient 931444637 Z86.2 921901 [facility] 913113203 R42 37328 HIV screening 094007765 Z11.4 007540 Viral scre ening status 453775617 Z11.59 227353 Health Concerns Section Related Observation LastModified by Organization Detai ls LastModified Time None Recorded Concern Status LastModified by Organization Details LastModified Time None Recorded Payers Encounter Date Sequence Insurance Name Policy Number Policy Schafer Covered Member ID Schafer Member ID Guarantor Name 01/28/2025 1 [employer] [facility] (MEDICAID HMO) Stacey Jean [id number] Stacey Jean Notes Date Note Type Note [...] Dew - not much water. ABRIL Vincent [address] [place] [address], [phone], [facility] [employer] 01/28/2025 15:10:38 OBGyn Episode No OBEpisode recorded.
[2025-02-16 01:04] VITALS: BP 130/81; PULSE 68; RESP 16; TEMP 36.6; O2SAT 100
== END 2025-02-16 01:06 | disposition home or self-care (01) ==
LOC: ER 00:59
PROVIDERS: Emergency Provider Emergency Medicine; PCP Nurse Practitioner Family
DX: R07.0 Pain in throat (principal); R09.81 Nasal congestion; J06.9 Acute upper respiratory infection, unspecified
CPT/HCPCS: 99282